=== PATIENT | female | born 1995 | race Caucasian/White ===

== ENCOUNTER 2020-07-25 03:07 | Outpatient (CLI) | payer MEDICAID, SELFPAY ==
[2020-07-25 23:15] LABS: COVID-19 PCR Negative (Negative)
== END 2020-07-25 03:08 | disposition home or self-care (01) ==
PROVIDERS: PCP Internal Medicine; Visit Provider Urology
DX: Z20.822 Contact with and (suspected) exposure to COVID-19 (principal); Z01.818 Encounter for other preprocedural examination
CPT/HCPCS: 87635

== ENCOUNTER 2020-11-12 17:23 | Emergency (ER) | payer MEDICAID, SELFPAY ==
[2020-11-12 17:44] VITALS: BP 128/72; PULSE 84; RESP 17; TEMP 36.7; O2SAT 100
--- NOTE | 2020-11-12 17:59 | ED.GENADUL_ITS ---
Discharge Plan Disposition Patient Disposition: HOME Condition: Stable Discharge Details Clinical Impression: Recurrent urinary tract infection, Right ankle sprain Primary Care Provider: Jose Mckoy ED Provider: Jazzy Kaiser Home Meds and New Rx's Prescriptions: New sulfamethoxazole-trimethoprim [Bactrim DS] 800-160 mg tablet 1 tab PO BID 7 Days Qty: 14 RF: 0 No Action pantoprazole 40 mg tablet,delayed release (DR/EC) 40 mg PO DAILY RF: 0 propranolol 80 mg capsule,extended release 24 hr 80 mg PO DAILY RF: 0 hydroxyzine HCl 25 mg tablet 25 mg PO BID RF: 0 Toviaz 8 mg tablet extended release 24 hr 8 mg PO HS RF: 0 Myrbetriq 50 mg tablet extended release 24 hr 50 mg PO DAILY RF: 0 Discharge Instructions Instructions: Ankle Sprain (ED), Urinary Tract Infection in Women (ED), How to Care for Your Suprapubic Catheter (DC) Additional Instructions: Take antibiotics as directed. I do understand that you just recently finished a course of antibiotics. Please take another 7 days of antibiotics and follow-up with your urologist at [facility]. Use the Jaswant wrap as needed for comfort. Rest, ice, compression, elevation for your ankle. The x-rays show no obvious deformity or abnormality. Follow up with primary care provider in 3-5 days. Return to ED sooner if any worsening or concerns. Increase oral fluids. Please take Tylenol or Ibuprofen with food every 4-6 hours as needed for pain and swelling. Referrals: Jose Mckoy [Primary Care Provider] - Discharge Data Discharge Date/Time-TO BE ENTERED AT DEPARTURE: 11/12/20 19:35 Medical Decision Making 25-year-old female with a past medical history of Li syndrome and a suprapubic catheter presents to the emergency room with chief complaint of suprapubic insertion site pain, pain with emptying her bladder, and increased yellowish drainage since having catheter changed out on . Does endorse some chills, no abdominal pain no vomiting no other associated symptoms. Patient reports that she does clean the insertion site with soap and water every day. She also is complaining of some right ankle pain status post possible injury 2 weeks ago while chasing after her horse. Ankle has no signs of obvious deformity does have some Achilles tenderness, and lateral malleolus tenderness with palpation. Distal CMS intact. Patient sees urologist at [facility]. Urinalysis and right ankle x-ray ordered. Urinalysis shows trace leukocyte, 10-20 WBCs culture is pending at this time. Will place patient on Bactrim DS twice daily for the next 7 days and instructed to follow-up with PCP/[facility] urologist regarding urinary tract infection. Imaging protocol: XR Right ankle. Views: 3 or more views. COMPARISON: No relevant prior studies available. FINDINGS: Bones/joints: There is no evidence of acute fracture. There is no evidence of joint malalignment or dislocation. Soft tissues: There are no soft tissue masses or fluid collections. IMPRESSION: 1. No evidence of acute fracture. 2. No evidence of acute dislocation. Discussed results and imaging with patient and discussed need to follow-up with [facility] urologist she verbalizes understanding. I did recommend to discuss the chronic recurrent UTIs most likely due to the catheter. I did give her written instructions of catheter home care. Discussed return instructions including increased redness, abdominal pain, vomiting, fever or any concerns. HPI General Mode of arrival: ambulatory . Date/Time Provider Initiated Documentation: 11/12/20 17:25 . Limitations to Documentation: no limitations . Information obtained by: patient and RN notes reviewed . HPI Narrative: 25-year-old female with a past medical history of Li syndrome and a suprapubic catheter presents to the emergency room with chief complaint of suprapubic insertion site pain, pain with emptying her bladder, and increased yellowish drainage since having catheter changed out on . Does endorse some chills, no abdominal pain no vomiting no other associated symptoms. Patient reports that she does clean the insertion site with soap and water every day. She also is complaining of some right ankle pain status post possible injury 2 weeks ago while chasing after her horse. Ankle has no signs of obvious deformity does have some Achilles tenderness, and lateral malleolus tenderness with palpation. Distal CMS intact. Patient sees urologist at [facility]. Related Data Home Medications Medication Instructions Recorded Confirmed fesoterodine [Toviaz] 8 mg PO HS 11/12/20 11/12/20 hydroxyzine HCl 25 mg PO BID 11/12/20 11/12/20 mirabegron [Myrbetriq] 50 mg PO DAILY 11/12/20 11/12/20 pantoprazole 40 mg PO DAILY 11/12/20 11/12/20 propranolol 80 mg PO DAILY 11/12/20 11/12/20 sulfamethoxazole-trimethoprim 1 tab PO BID 7 Days #14 tab 11/12/20 [Bactrim DS] Previous Rx's Medication Instructions Recorded sulfamethoxazole-trimethoprim 1 tab PO BID 7 Days #14 tab 11/12/20 [Bactrim DS] Allergies Allergy/AdvReac Type Severity Reaction Status Date / Time cephalexin [From Keflex] AdvReac Intermediate Diarrhea Unverified 11/12/20 17:54 Latex, Natural Rubber AdvReac Intermediate Swelling/Ed Unverified 11/12/20 17:54 [email or web address] General Stated Complaint: Urinary KAYLIN: 4 Review of Systems All systems reviewed & are unremarkable except as noted in HPI and below Genitourinary Genitourinary: Reports as per HPI (Hx Suprapubic Saleem with dysuria, and insertion site pain.), Reports dysuria, Denies pelvic pain, Denies vaginal discharge and Denies vaginal odor [facility] Medical History (Updated 11/12/20 @ 19:23 by Jazzy Kaiser) Li's syndrome Social History Smoking/Tobacco Use Status: Never Smoking risk assessment performed?: Yes Alcohol Intake: never Drug use: Never Substance use type: does not use Do you feel safe at home: Yes Do you feel safe in your relationship?: Yes Exam Narrative Exam Narrative: Constitutional: Alert and oriented x3. Appears stated age. Normal body habitus. Head: Normocephalic, no trauma. Eyes: Pupils PERRLA, Red reflex noted, EOM's intact. Eyelids symmetrical without lesions, discharge, or swelling. ENT: Bilateral TM's WNL, External ear normal to inspection, no mastoid TTP, swe lling, or erythema, Nasal turbinates WNL, no nasal discharge. Normal dentition, Posterior pharynx WNL, no exudate. Chest: RRR, Normal S1, S2, distal pulses intact. Resp: Lungs clear to auscultation bilaterally, no wheezes, rales, or rhonchi. Abdomen: Suprapubic Saleem catheter noted, no significant surrounding erythema or swelling there is small amount of yellow honey colored crusty drainage. Mild CVA tenderness bilaterally with palpation. Abdomen is soft nondistended nontender to palpation all 4 quadrants. Musculoskeletal: Normal gait, 5/5 strength to all four extremities. Right ankle tenderness to the lateral malleolus with palpation no obvious deformity, crepitus or swelling. Distal CMS intact. Skin: No suspicious rashes or lesions. Capillary refill less than 2 sec. Neurologic: Cranial nerves II-XII intact. Alert and oriented x 3. DTR's intact. Hematologic/Lymphatic: No ecchymosis, no lymphadenopathy. Course Vital Signs Vital signs: Vital Signs Temperature 36.7 C 11/12/20 17:44 Pulse 84 11/12/20 17:44 Respiratory Rate 17 11/12/20 17:44 Blood Pressure 128/72 11/12/20 17:44 Pulse Oximetry 100 11/12/20 17:44 Temperature 36.7 C 11/12/20 17:44 Temperature Source Temporal Artery Scan 11/12/20 17:44 Pulse 84 11/12/20 17:44 Respiratory Rate 17 11/12/20 17:44 Respiratory Effort Non-Labored 11/12/20 17:55 Blood Pressure 128/72 11/12/20 17:44 Blood Pressure Position Sitting 11/12/20 17:44 Pulse Oximetry 100 11/12/20 17:44 Oxygen Delivery Method Room Air 11/12/20 17:44 Oxygen Flow Rate 0 11/12/20 17:44 Pain Level 4 11/12/20 17:44 Lab/Test Results Lab/Test Results: POC- Test(urine) Negative
[2020-11-12 18:00] LABS: Bilirubin Negative (Negative); Blood Negative (Negative); Clarity Clear (Clear); Glucose Negative (Negative); Ketones Negative (Negative); Leukocyte Esterase Trace (Negative); Nitrite Negative (Negative); Urobilinogen 0.2 EU/dL (Up TO 0.2)
[2020-11-12 18:16] LABS: Bacteria Negative HPF (Negative); C & S Indicated? Yes; Crystals Negative HPF (Negative); Epithelial Cells Negative HPF (Negative); Mucus Negative (Negative); RBC Negative HPF (0-2)
--- NOTE | 2020-11-12 18:58 | DI.RAD_ITS ---
Exam(s) XR ANKLE RT COMPLETE EXAM: XR ANKLE RT COMPLETE CLINICAL HISTORY: Injury 2 weeks ago, Ankle pain/swelling. TECHNIQUE: 2D digital imaging was performed. COMPARISON: No exams were available for comparison FINDINGS: No evidence of fracture or widening of the mortise. Talar dome appears unremarkable. No degenerativ e changes. No tarsal coalition. IMPRESSION: No significant radiographic findings DATA REPOSITORY: RADIATION DOSE DELIVERED:
[2020-11-12] MEDS: Sulfameth/Trimeth DS TAB 1 TAB PO (19:09)
--- NOTE | 2020-11-12 20:07 | DI.VRAD_ITS ---
PROCEDURE INFORMATION: Exam: XR Right Ankle Exam date and time: 11/12/2020 6:02 PM Age: 25 years old Clinical indication: Ankle; Right; Patient HX: Injured 2 weeks ago, pain medial TECHNIQUE: Imaging protocol: XR Right ankle. Views: 3 or more views. COMPARISON: No relevant prior studies available. FINDINGS: Bones/joints: There is no evidence of acute fracture. There is no evidence of joint malalignment or dislocation. Soft tissues: There are no soft tissue masses or fluid collections. IMPRESSION: 1. No evidence of acute fracture. 2. No evidence of acute dislocation. Dictated and Authenticated by: Raul Garcai MD. Ordering:JAMIE Purcell MD
--- NOTE | 2020-11-13 13:40 | NUR.NOTE ---
Addendum entered by Mirlande Whitman 11/13/20 13:51: Nurse from Urology was Kit Original Note: Nursing Note: [facility] [place] [facility] called requesting the UA and if possible UC to be faxed to them. I faxed the UA and a preliminary to them. They will speak with the lab and have the Urine culture faxed directly to them. Mirlande Whitman P [phone] F [phone]
== END 2020-11-12 19:35 | disposition home or self-care (01) ==
PROVIDERS: Emergency Provider Registered Nurse Emergency; PCP Internal Medicine
DX: N39.0 Urinary tract infection, site not specified (principal); B95.61 Methicillin susceptible Staphylococcus aureus infection as the cause of diseases classified elsewhere; S93.491A Sprain of other ligament of right ankle, initial encounter; X58.XXXA Exposure to other specified factors, initial encounter; Z96.0 Presence of urogenital implants
CPT/HCPCS: 81025; 87077; 99283; 73610; 81003; 81015; 87086; 87186; 99284

== ENCOUNTER 2022-10-25 17:12 | Outpatient (REF) | payer MEDICAID, SELFPAY ==
[2022-10-25 19:36] LABS: Bilirubin Negative (Negative); Blood Trace-intact (Negative); Clarity Clear (Clear); Glucose Negative (Negative); Ketones Negative (Negative); Leukocyte Esterase Negative (Negative); Nitrite Negative (Negative); Urobilinogen 0.2 mg/dL (Up to 0.2); pH 6.5 (5-8)
[2022-10-25 19:45] LABS: Bacteria Rare HPF (Negative); C & S Indicated? C&S Done As Ordered; Casts Negative LPF (Negative); Crystals Negative HPF (Negative); Epithelial Cells Rare HPF (Negative); Mucus Negative (Negative); WBC 0-2 HPF (0-5)
== END 2022-10-25 17:13 | disposition home or self-care (01) ==
LOC: LBN 17:12
PROVIDERS: PCP Internal Medicine; Visit Provider Urology
DX: N32.89 Other specified disorders of bladder (principal); R82.998 Other abnormal findings in urine; N39.0 Urinary tract infection, site not specified
CPT/HCPCS: 87077; 81003; 81015; 87086; 87186

== ENCOUNTER 2022-11-26 17:03 | Outpatient (REF) | payer MEDICAID, SELFPAY ==
[2022-11-26 15:13] LABS: Bacteria Moderate HPF (Negative); C & S Indicated? C&S Done As Ordered; Casts Negative LPF (Negative); Crystals Negative HPF (Negative); Epithelial Cells Rare HPF (Negative); Mucus Negative (Negative); RBC 0-2 HPF (0-2)
== END 2022-11-26 17:04 | disposition home or self-care (01) ==
LOC: LBN 17:03
PROVIDERS: PCP Internal Medicine; Visit Provider Urology
DX: N32.89 Other specified disorders of bladder (principal); R82.998 Other abnormal findings in urine; R82.79 Other abnormal findings on microbiological examination of urine
CPT/HCPCS: 87077; 81015; 87086; 87186

== ENCOUNTER 2022-12-11 12:28 | Outpatient (REF) | payer MEDICAID, SELFPAY | END 2022-12-11 12:29 | disposition home or self-care (01) | LOC: LBN 12:28 | PROVIDERS: PCP Internal Medicine; Visit Provider Urology | DX: N32.89 Other specified disorders of bladder (principal); R82.79 Other abnormal findings on microbiological examination of urine | CPT/HCPCS: 87077; 87086; 87186 ==

== ENCOUNTER 2023-03-25 10:43 | Outpatient (REF) | payer MEDICAID, SELFPAY ==
[2023-03-25 15:35] LABS: Bilirubin Negative (Negative); Blood Trace-intact (Negative); Clarity Cloudy (Clear); Glucose Negative (Negative); Ketones Negative (Negative); Leukocyte Esterase Trace (Negative); Nitrite Positive (Negative); Urobilinogen 0.2 mg/dL (Up to 0.2); pH 7.5 (5-8)
[2023-03-25 15:52] LABS: Epithelial Cells Moderate HPF (Negative); RBC 0-2 HPF (0-2); WBC >50 HPF (0-5)
[2023-03-25 15:53] LABS: Bacteria Moderate HPF (Negative); C & S Indicated? C&S Done As Ordered; Casts Negative LPF (Negative); Crystals Few Amorphous HPF (Negative); Mucus Heavy (Negative)
--- NOTE | 2023-03-29 01:22 | NUR.NOTE ---
Scanned lab results to Charlie Bedoya at [facility]
== END 2023-03-25 10:44 | disposition home or self-care (01) ==
LOC: LBN 10:43
PROVIDERS: PCP Internal Medicine; Visit Provider Urology
DX: R82.998 Other abnormal findings in urine (principal); R39.89 Other symptoms and signs involving the genitourinary system
CPT/HCPCS: 87077; 81003; 81015; 87086; 87186

== ENCOUNTER 2023-04-09 15:13 | Outpatient (REF) | payer MEDICAID, SELFPAY ==
[2023-04-09 13:22] LABS: Bilirubin Negative (Negative); Blood Trace-intact (Negative); Clarity Clear (Clear); Glucose Negative (Negative); Ketones Negative (Negative); Leukocyte Esterase Negative (Negative); Nitrite Negative (Negative); Urobilinogen 0.2 mg/dL (Up to 0.2)
[2023-04-09 13:30] LABS: Bacteria Negative HPF (Negative); Casts Negative LPF (Negative); Crystals Rare Calcium Oxalate HPF (Negative); Epithelial Cells Moderate HPF (Negative); Mucus Trace (Negative); Other Cells Rare Renal (Negative); RBC 0-2 HPF (0-2); WBC Negative HPF (0-5)
[2023-04-09 13:31] LABS: C & S Indicated? No
== END 2023-04-09 15:14 | disposition home or self-care (01) ==
LOC: LBN 15:13
PROVIDERS: PCP Internal Medicine; Visit Provider Urology
DX: R33.8 Other retention of urine (principal)
CPT/HCPCS: 81003; 81015

== ENCOUNTER 2023-06-06 19:22 | Outpatient (REF) | payer MEDICAID, SELFPAY ==
[2023-06-06 16:23] LABS: Bilirubin Negative (Negative); Blood Moderate (Negative); Clarity Clear (Clear); Glucose Negative (Negative); Ketones Negative (Negative); Leukocyte Esterase Moderate (Negative); Nitrite Negative (Negative); Urobilinogen 0.2 mg/dL (Up to 0.2); pH 6.5 (5-8)
[2023-06-06 16:32] LABS: Epithelial Cells Rare HPF (Negative); WBC 20-50 HPF (0-5)
[2023-06-06 16:33] LABS: Bacteria Rare HPF (Negative); C & S Indicated? C&S Done As Ordered; Crystals Negative HPF (Negative); Mucus Trace (Negative)
== END 2023-06-06 19:23 | disposition home or self-care (01) ==
LOC: LBN 19:22
PROVIDERS: PCP Internal Medicine; Visit Provider Urology
DX: N23 Unspecified renal colic (principal); R82.998 Other abnormal findings in urine
CPT/HCPCS: 87077; 81003; 81015; 87086; 87186

== ENCOUNTER 2023-07-09 17:15 | Outpatient (CLI) | payer MEDICAID, SELFPAY | END 2023-07-09 17:16 | disposition home or self-care (01) | LOC: LBO 17:16 | PROVIDERS: PCP Internal Medicine; Visit Provider Urology | DX: R31.0 Gross hematuria (principal); B96.29 Other Escherichia coli [E. coli] as the cause of diseases classified elsewhere | CPT/HCPCS: 36415; 87077; 87086; 87186 ==

== ENCOUNTER 2023-08-25 18:11 | Outpatient (REF) | payer MEDICAID, SELFPAY | END 2023-08-25 18:12 | disposition home or self-care (01) | LOC: LBN 18:11 | PROVIDERS: PCP Internal Medicine; Visit Provider Urology | DX: R31.0 Gross hematuria (principal) | CPT/HCPCS: 87077; 87086; 87186 ==

== ENCOUNTER 2023-09-15 22:02 | Outpatient (REF) | payer MEDICAID, SELFPAY | END 2023-09-15 22:03 | disposition home or self-care (01) | LOC: LBN 22:02 | PROVIDERS: PCP Internal Medicine; Visit Provider Urology | DX: N32.89 Other specified disorders of bladder (principal) | CPT/HCPCS: 87077; 87086; 87186 ==

== ENCOUNTER 2023-09-30 18:01 | Outpatient (REF) | payer MEDICAID, SELFPAY | END 2023-09-30 18:02 | disposition home or self-care (01) | LOC: LBN 18:01 | PROVIDERS: PCP Internal Medicine; Visit Provider Urology | DX: N39.0 Urinary tract infection, site not specified (principal); N32.89 Other specified disorders of bladder | CPT/HCPCS: 87077; 87086; 87186 ==

== ENCOUNTER 2024-03-01 18:22 | Emergency (ER) | payer MEDICAID, SELFPAY ==
[2024-03-01 18:33] VITALS: BP 108/67; PULSE 101; RESP 20; TEMP 36.7; O2SAT 99
--- NOTE | 2024-03-01 19:50 | W.ED.GENAD ---
Discharge Plan Disposition Patient Disposition: Against Medical Advice Condition: Stable Discharge Details Clinical Impression: Small bowel obstruction Primary Care Provider: Chiquis Adams ED Provider: Zheng Guerrero Home Meds and New Rx's Prescriptions: Continued pantoprazole 40 mg tablet,delayed release (DR/EC) 40 mg PO DAILY Patient Comments: TAKE 1 TABLET BY MOUTH ONCE DAILY propranolol 80 mg capsule,extended release 24 hr 80 mg PO DAILY Patient Comments: TAKE 1 CAPSULE BY MOUTH ONCE DAILY hydroxyzine HCl 25 mg tablet 25 mg PO BID Patient Comments: TAKE 1 TABLET BY MOUTH EVERY 8 HOURS NEEDED fesoterodine [Toviaz] 8 mg tablet extended release 24 hr 8 mg PO HS Patient Comments: TAKE 1 TABLET BY MOUTH ONCE DAILY IN THE EVENING mirabegron [Myrbetriq] 50 mg tablet extended release 24 hr 50 mg PO DAILY Patient Comments: TAKE 1 TABLET BY MOUTH ONCE DAILY diazepam 2 mg tablet 2 mg PO BID PRN Patient Comments: TAKE 1 TABLET BY MOUTH EVERY 12 HOURS NEEDED FOR ANXIETY FOR 28 DAYS. MAX DAILY DOSE = 4 MG Discharge Instructions Instructions: Small bowel obstruction Additional Instructions: You were seen here in the emergency department for your abdominal pain and constipation since yesterday without passage of gas. Your CT scan shows a small bowel obstruction and I think you should be admitted to the hospital, that sometimes these cases merely need nasogastric tube and time to self resolve but sometimes they can be surgical, you chose to leave AGAINST MEDICAL ADVICE and presented to another facility where you would prefer to remain in case of any surgical complications due to your extensive surgical history. He may suffer injury or even leaving AGAINST MEDICAL ADVICE but I do recommend that he present to facility of your choosing. Referrals: Chiquis Adams [Primary Care Provider] - Discharge Data Discharge Date/Time-TO BE ENTERED AT DEPARTURE: 03/01/24 22:20 Discharge Comment: Pt left AMA HPI General Date/Time Provider Initiated Documentation: 03/01/24 18:58. HPI Narrative: 28 year-old female presents to ED today by POV/ambulating with her boyfriend with a chief complaint of abdominal pain, nausea, near syncope, chills with onset noted mostly today. Quality described as severe lower abdominal pain, no radiation to chest pain, cough, shortness of breath, endorsese constipation since yesterday and not passing flatus, denies overt fever. Severity is described as severe. Palliating factors include nothing specific attempted. Provoking factors include nothing specific. 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 Patient not anticoagulated. Related Data Home Medications ?Medication ?Instructions ?Recorded ?Confirmed fesoterodine 8 mg tablet,extended 8 mg PO HS 11/12/20 03/01/24 release 24 hr (Toviaz) hydroxyzine HCl 25 mg tablet 25 mg PO BID 11/12/20 03/01/24 mirabegron 50 mg tablet,extended 50 mg PO DAILY 11/12/20 03/01/24 release 24 hr (Myrbetriq) pantoprazole 40 mg tablet,delayed 40 mg PO DAILY 11/12/20 03/01/24 release propranolol 80 mg capsule,24 80 mg PO DAILY 11/12/20 03/01/24 hr,extended release diazepam 2 mg tablet 2 mg PO BID PRN 03/01/24 03/01/24 Allergies Allergy/AdvReac Type Severity Reaction Status Date / Time cephalexin (From Keflex) AdvReac Intermediate Diarrhea Unverified 03/01/24 18:36 Latex, Natural Rubber AdvReac Intermediate Swelling/Ed Unverified 03/01/24 18:36 [email or web address] General Stated Complaint: Abd Prob KAYLIN: 3 Review of Systems All systems reviewed & are unremarkable except as noted in HPI and below Exam Narrative Exam Narrative: GENERAL APPEARANCE: Well-nourished, non-toxic, awake and alert, atraumatic, no acute distress. SKIN: Warm, pink, dry, intact, without rashes/lesions/ulcerations. HEAD: Normocephalic, atraumatic, normal hair distribution for gender/age. EYES: Normal conjunctiva, no exudates on lids/lashes. ENT: Nares patent, no circumoral cyanosis, no facial swelling NECK: Supple, trachea midline, painless cervical ROM. LUNGS/CHEST: Lungs CTA bilaterally, non-labored respirations, normal A/P diameter, symmetrical expansion, no chest wall deformity HEART (CV/PV): Regular rate and rhythm without murmur, no peripheral edema, no JVD. ABDOMEN: Soft, non-distended, no guarding, lower abdominal tenderness, no Corcoran sign, normoactive bowel sounds in the right abdomen, question hypoactive in the left, no CVA tenderness to percussion bilaterally. MSK: Normal ROM, no swelling/deformity to bilateral UEs or LEs, moving all extremities without weakness, no cyanosis, spine midline without tenderness, normal curvature. NEURO: Mental Status AAOx4 - alert to person, place, time, events No facial droop, no forehead involvement. Motor: No focal weakness - strength 5/5 in bilateral UEs and LEs, proximal and distal, symmetric. Sensory: sensation intact to light touch globally. Gait normal: patient ambulated without ataxia into ED room. PSYCH: euthymic, cooperative, pleasant, appropriate speech Course Vital Signs Vital signs: Vital Signs Temperature 36.7 C 03/01/24 18:33 Pulse 101 H 03/01/24 18:33 Respiratory Rate 20 03/01/24 18:33 Blood Pressure 108/67 03/01/24 18:33 Pulse Oximetry 99 03/01/24 18:33 Temperature 36.7 C 03/01/24 18:33 Temperature Source Oral 03/01/24 18:33 Pulse 101 H 03/01/24 18:33 Respiratory Rate 20 03/01/24 18:33 Blood Pressure 108/67 03/01/24 18:33 Blood Pressure Position Sitting 03/01/24 18:33 Pulse Oximetry 99 03/01/24 18:33 Oxygen Delivery Method Room Air 03/01/24 18:33 Oxygen Flow Rate 0 03/01/24 18:33 Pain Level 7 03/01/24 18:33 Medical Decision Making This dictation utilizes [id number] dictation software and may contain unedited grammatical errors. 28 year-old female presents to ED today by POV/ambulating with her boyfriend with a chief complaint of abdominal pain, nausea, near syncope, chills with onset noted mostly today. Quality described as severe lower abdominal pain, no radiation to chest pain, cough, shortness of breath, endorsese constipation since yesterday and not passing flatus, denies overt fever. Severity is described as severe. Palliating factors include nothing specific attempted. Provoking factors include nothing specific. 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 Family and social history: Noncontributory. Pertinent exam findings / vital signs include lower abdominal tenderness, no Corcoran sign, normoactive bowel sounds in the right abdomen, question hypoactive in the left, no CVA tenderness to percussion bilaterally, benign cardiopulmonary exam. Differential / pathologies of concern include [ ]. Diagnostic studies of: -CBC, CMP, lactate, lipase, CT ABD/pelvis with contrast. -Labs show mild leukocytosis, no actionable abnormality on CMP, negative lipase, negative lactate -CT ABD/pelvis shows a distal small bowel obstruction with transition point and wall thickening Interventions of: -Counseled the patient on small bowel obstruction and likely need for admission to the hospital, discussed NG tube and observation versus possible surgical need, the patient wished to leave AMA at this point on even the possibility of surgery and present to facility where she has complex urologic surgical history. ED Course/Assessment/Plan: 28-year-old female is having lower abdominal pain feeling like she is going to pass out, states her heart rate is fluttering, she has tried ondansetron without relief, she has been having some episodes of vomiting, reports 1 bowel movement yesterday morning but no passage of flatus or further bowel movement since. Her CT does show a distal small bowel obstruction at the site of a prior anastomosis. She has elevated white blood cells to 15.47, no actionable abnormality on CMP, lipase and LFTs negative. I counseled her that she likely needed admission to the hospital with a placement of NG tube and possible small bowel follow-through series but this sometimes these cases can be surgical. She has had extensive prior urologic surgery at [facility] and states that she would like to be transferred there is stated that they were unlikely to accept the transfer but I would be happy to call for them. She stated she would like to sign out AGAINST MEDICAL ADVICE and presented to [facility] herself after calling her mother on the phone. I counseled her that she is leaving with a significant pathology of small bowel obstruction and that she needs to be careful and should present to any facility she prefers for definitive care, counseled that she could have injury, coma, possibly after leaving the hospital. Findings not consistent with perforated viscous. Disposition of Small Bowel Obstruction. Patient verbalized understanding of the plan and return to ED criteria and engaged in shared decision making. Medical Records Medical records reviewed: Yes I reviewed the patient's medical records. Imaging Data Radiologic Study: Attestation: I personally reviewed and interpreted this imaging study as follows: Imaging: CT Scan Radiologist's impression: Addendum created by Andrea Rush MD on 03/01/2024 10:07:38 PM EST: THIS REPORT CONTAINS FINDINGS THAT MAY BE CRITICAL TO PATIENT CARE. The findings were verbally communicated via telephone conference with ZHENG GUERRERO at 10:07 PM EST on 03/01/2024. The findings were acknowledged and understood. Initial report created on 03/01/2024 10:04:24 PM EST: PROCEDURE INFORMATION: Exam: CT Abdomen And Pelvis With Contrast Exam date and time: 03/01/2024 8:48 PM Age: 28 years old Clinical indication: Other: R sided abd pain; Prior surgery; Surgery date: 6+ months; Surgery type: Bladder, appendix TECHNIQUE: Imaging protocol: Computed tomography of the abdomen and pelvis with contrast. Contrast material: OMNIPAQUE 350; Contrast volume: 75 ml; Contrast route: INTRAVENOUS (IV); COMPARISON: No relevant prior studies available. FINDINGS: Liver: Normal. No mass. Gallbladder and biliary ducts: Normal. No calcified stones. No ductal dilation. Pancreas: Normal. No ductal dilation. Spleen: Normal. No splenomegaly. Adrenal glands: Normal. No mass. Kidneys and ureters: Normal. No hydronephrosis. Stomach and bowel: Distended small bowel loops containing fecal matter in the pelvis exhibit abrupt transition to nondilated small bowel in the area of prior small bowel anastomosis. There is moderate adjacent small bowel wall thickening and surrounding fatty stranding. Normal amount of gas and stool throughout the colon. Bowel loops are otherwise normal in caliber. Appendix: No evidence of appendicitis. Intraperitoneal space: Minimal free fluid in the pelvis. No free air. Vasculature: Unremarkable. No abdominal aortic aneurysm. Lymph nodes: Unremarkable. No enlarged lymph nodes. Urinary bladder: Unremarkable as visualized. Reproductive: Uterus appears to be surgically absent. No adnexal abnormality. Bones/joints: Unremarkable. No acute fracture. Soft tissues: Unremarkable. IMPRESSION: Findings suggesting distal small bowel obstruction with transition point in the pelvis in the area of prior small bowel anastomosis. Adjacent wall thickening and inflammatory change may be secondary to obstruction or indicate focal enteritis Dictated and Authenticated by: Andrea Rush MD. Lab Data Lab results reviewed: Yes I reviewed the patient's lab results. Labs: Laboratory Tests Range/Units 03/01/ 20:18 WBC (4.4-10.8) 10^3/uL 15.47 H RBC (3.93-5.22) 10^6/uL 4.70 Hgb (11.2-15.7) g/dL 14.5 Hct (36.0-46.0) % 41.5 MCV (80-95) fL 88 MCH (27.0-33.0) pg 30.9 MCHC (32.0-36.0) % 34.9 RDW (11.7-14.6) % 10.9 L Plt Count (130-400) 10^3/uL 300 MPV (8.0-11.0) fL 9.2 Immature Gran % % 0.4 Neutrophils % % 90.1 Lymphocytes % % 6.2 Monocytes % % 2.9 Eosinophils % % 0.1 Basophils % % 0.3 Nucleated RBC % (0.0-0.3) % 0.0 Absolute Neutrophils (1.2-6.7) 10^3/uL 13.94 H Absolute Lymphocytes (1.2-3.4) 10^3/uL 0.96 L Absolute Monocytes (0.1-0.8) 10^3/uL 0.45 Absolute Eosinophils (0.0-0.7) 10^3/uL 0.02 Absolute Basophils (0.0-0.2) 10^3/uL 0.05 VBG Lactate (0.6-1.4) mmol/L 0.9 Sodium (136-145) mmol/L 139 Potassium (3.5-5.1) mmol/L 4.1 Chloride (98-107) mmol/L 102 Carbon Dioxide (21.0-32.0) mmol/L 27.3 Anion Gap (3-11) mmol/L 9.7 BUN (7-18) mg/dL 10 Creatinine (0.55-1.02) mg/dL 0.9 Est GFR (CKD-EPI 2020) (mL/min/1.73m2) 89.30 Glucose (74-106) mg/dL 118 H Calcium (8.5-10.1) mg/dL 9.6 Magnesium (1.8-2.4) mg/dL 1.9 Total Bilirubin (0.2-1.0) mg/dL 0.95 AST (15-37) U/L 13 L ALT (14-59) U/L 18 Alkaline Phosphatase (46-116) U/L 31 L Total Protein (6.4-8.2) g/dL 8.0 Albumin (3.4-5.0) g/dL 4.4 Lipase (16-77) U/L 44 Quality:SDOH Health Related Social Needs: No Data to Display PFSH All Active Problems (Updated 03/01/24 @ 22:20 by JAMAR Mena) Small bowel obstruction (Acute) Right ankle sprain (Acute) Recurrent urinary tract infection (Acute) Li's syndrome (Acute) Social History Smoking/Tobacco Use Status: Never Smoking risk assessment performed?: Yes Alcohol Intake: never Drug use: Never Substance use type: does not use Do you feel safe at home: Yes Do you feel safe in your relationship?: Yes
[2024-03-01 20:03] VITALS: PULSE 92; RESP 23; TEMP 36.5; O2SAT 100
[2024-03-01 20:22] LABS: Lactate 0.9 mmol/L (0.6-1.4)
[2024-03-01 20:26] LABS: Abs Immature Grans 0.06 10^3/uL (0.0-0.06); Absolute Basophil Count 0.05 10^3/uL (0.0-0.2); Absolute Eosinophil Count 0.02 10^3/uL (0.0-0.7); Absolute Lymphocyte Count 0.96 10^3/uL (1.2-3.4); Absolute Monocyte Count 0.45 10^3/uL (0.1-0.8); Absolute Neutrophil Count 13.94 10^3/uL (1.2-6.7); Basophils % 0.3 %; Eosinophils % 0.1 %; HCT 41.5 % (36.0-46.0); HGB 14.5 g/dL (11.2-15.7); Immature Grans % 0.4 %; Lymphocytes % 6.2 %; MCH 30.9 pg (27.0-33.0); MCHC 34.9 % (32.0-36.0); MCV 88 fL (80-95); MPV 9.2 fL (8.0-11.0); Monocytes % 2.9 %; Neutrophils % 90.1 %; Platelet Count 300 10^3/uL (130-400); RDW 10.9 % (11.7-14.6); RDW-SD 35.4 fL; WBC 15.47 10^3/uL (4.4-10.8)
[2024-03-01 20:40] LABS: ALT 18 U/L (14-59); AST 13 U/L (15-37); Albumin 4.4 g/dL (3.4-5.0); Alkaline Phosphatase 31 U/L (46-116); Anion Gap 9.7 mmol/L (3-11); BUN 10 mg/dL (7-18); Bilirubin, Total 0.95 mg/dL (0.2-1.0); CO2 27.3 mmol/L (21.0-32.0); CREATININE 0.9 mg/dL (0.55-1.02); Calcium 9.6 mg/dL (8.5-10.1); Chloride 102 mmol/L (98-107); Glucose 118 mg/dL (74-106); Lipase 44 U/L (16-77); Magnesium 1.9 mg/dL (1.8-2.4); Potassium 4.1 mmol/L (3.5-5.1); Sodium 139 mmol/L (136-145)
[2024-03-01] MEDS: Normal Saline - Diluent 50 ML VIAL IJ (20:45)
--- NOTE | 2024-03-01 21:04 | DI.CT_ITS ---
Exam(s) CT ABDOMEN PELVIS W EXAM: CT ABDOMEN PELVIS W CLINICAL HISTORY: R sided ABD pain. TECHNIQUE: Imaging Protocol: Axial computed tomography images with coronal and sagittal reformatted images were created and reviewed CONTRAST MATERIAL: Intravenous: Omnipaque-350 75cc Oral: None COMPARISON: No exams were available for comparisonz FINDINGS: VISUALIZED LUNG BASES: No nodules nor pleural effusions evident. ABDOMEN: There is no ascites. LIVER: There are no focal hepatic lesions evident. No dilated intrahepatic ducts. GALLBLADDER/BILIARY: No obvious gallbladder pathology. CBD is not dilated. PANCREAS: No evidence of pancreatic mass nor dilatation of the pancreatic duct. SPLEEN: Spleen is not enlarged. No obvious intrasplenic lesions. Splenic and portal veins are paten t. ADRENALS: There are no significant adrenal masses. KIDNEYS:No cysts evident. No solid renal masses. No calculi nor hydronephrosis.. ABDOMINAL AORTA: Abdominal aorta is not enlarged. LYMPH NODES:There is no retroperitoneal nor paraaortic adenopathy. ABDOMINAL WALL: No evidence of significant anterior abdominal wall nor inguinal hernia. GI: There is a small bowel anastomosis in lower right pelvis just above the urinary bladder and the s mall bowel loop at this level is distended to 3.3 cm and fecal filled consistent with element of obst ruction and there is also some surrounding fluid in this region. No free air evident. The colon is not collapsed at this time.. PELVIS: GI: No evidence of appendicitis.No evidence of sigmoid diverticulitis. LYMPH NODES: There is no intrapelvic nor inguinal adenopathy. REPRODUCTIVE: Uterus appears to be surgically absent. There are no abnormal adnexal masses. URINARY BLADDER: Collapsed. OSSEOUS: No fractures and no significant osseous lesions. IMPRESSION: 1. Findings are consistent with a mid-distal small bowel obstruction with the transition point being at the level of a prior small bowel anastomosis. There is fecalization of the dilated bowel loops at this level and there is some free fluid in the pelvis evident. 2. Surgical consultation recommended. RADIATION DOSE DELIVERED: 355.5mGy.cm Total DLP DATA REPOSITORY: All CT scans at this facility are submitted to the National Radiology Data Registry (NRDR) Dose Index Registry (DIR) with the [employer] (ACR). RADIATION OPTIMIZATION: All CT scans at this facility use at least one of these dose optimization te chniques: automated exposure control; mA and/or kV adjustment per patient size (includes targeted exa ms where dose is matched to clinical indication); or iterative reconstruction.
--- NOTE | 2024-03-01 22:04 | DI.VRAD_ITS ---
Addendum created by Andrea Rush MD on 03/01/2024 10:07:38 PM EST: THIS REPORT CONTAINS FINDINGS THAT MAY BE CRITICAL TO PATIENT CARE. The findings were verbally communicated via telephone conference with DAKOTA GUERRERO at 10:07 PM EST on 03/01/2024. The findings were acknowledged and understood. Initial report created on 03/01/2024 10:04:24 PM EST: PROCEDURE INFORMATION: Exam: CT Abdomen And Pelvis With Contrast Exam date and time: 03/01/2024 8:48 PM Age: 28 years old Clinical indication: Other: R sided abd pain; Prior surgery; Surgery date: 6+ months; Surgery type: Bladder, appendix TECHNIQUE: Imaging protocol: Computed tomography of the abdomen and pelvis with contrast. Contrast material: OMNIPAQUE 350; Contrast volume: 75 ml; Contrast route: INTRAVENOUS (IV); COMPARISON: No relevant prior studies available. FINDINGS: Liver: Normal. No mass. Gallbladder and biliary ducts: Normal. No calcified stones. No ductal dilation. Pancreas: Normal. No ductal dilation. Spleen: Normal. No splenomegaly. Adrenal glands: Normal. No mass. Kidneys and ureters: Normal. No hydronephrosis. Stomach and bowel: Distended small bowel loops containing fecal matter in the pelvis exhibit abrupt transition to nondilated small bowel in the area of prior small bowel anastomosis. There is moderate adjacent small bowel wall thickening and surrounding fatty stranding. Normal amount of gas and stool throughout the colon. Bowel loops are otherwise normal in caliber. Appendix: No evidence of appendicitis. Intraperitoneal space: Minimal free fluid in the pelvis. No free air. Vasculature: Unremarkable. No abdominal aortic aneurysm. Lymph nodes: Unremarkable. No enlarged lymph nodes. Urinary bladder: Unremarkable as visualized. Reproductive: Uterus appears to be surgically absent. No adnexal abnormality. Bones/joints: Unremarkable. No acute fracture. Soft tissues: Unremarkable. IMPRESSION: Findings suggesting distal small bowel obstruction with transition point in the pelvis in the area of prior small bowel anastomosis. Adjacent wall thickening and inflammatory change may be secondary to obstruction or indicate focal enteritis Dictated and Authenticated by: Andrea Rush MD. Ordering:THALIA Calzada MD
[2024-03-01 22:34] LABS: Bilirubin Negative (Negative); Blood Trace-intact (Negative); Clarity Clear (Clear); Glucose Negative (Negative); Ketones >=160 mg/dL (Negative); Leukocyte Esterase Negative (Negative); Nitrite Negative (Negative); Urobilinogen 0.2 mg/dL (Up to 0.2); pH 6.5 (5-8)
[2024-03-01 22:44] LABS: Bacteria Rare HPF (Negative); C & S Indicated? No; Casts Negative LPF (Negative); Crystals Negative HPF (Negative); Epithelial Cells Rare HPF (Negative); Mucus Negative (Negative); RBC 0-2 HPF (0-2)
== END 2024-03-01 22:20 | disposition left against medical advice (07) ==
PROVIDERS: Emergency Provider Physician Assistant; PCP Family Medicine
DX: R10.30 Lower abdominal pain, unspecified (principal); K56.609 Unspecified intestinal obstruction, unspecified as to partial versus complete obstruction; Z53.29 Procedure and treatment not carried out because of patient's decision for other reasons; R11.0 Nausea; K59.00 Constipation, unspecified
CPT/HCPCS: 80053; 81025; 83690; 99285; 74177; 81003; 81015; 83605; 83735; 85025

== ENCOUNTER 2024-10-19 01:49 | Outpatient (CLI) | payer OTHER, SELFPAY ==
--- NOTE | 2024-10-19 10:41 | DI.RAD_ITS ---
Exam(s) XR KNEE LT 3V AP,LAT,SUSU EXAM: XR KNEE LT 3V AP,LAT,SUSU CLINICAL HISTORY: Disability determination Z02.71 Left knee Pain. TECHNIQUE: 2D digital imaging was performed. COMPARISON: No exams were available for comparison FINDINGS: 3 views There is evidence of previous surgery. There is an almost horizontal channel seen in the metaphysis of the femur and a small metallic plate at the level the lateral cortex of the metaphysis. There are no fractures nor obvious joint effusion. However, there are advanced degenerative changes with what appears to be complete elimination of the joint space in the patellofemoral compartment (realizing that there is no merchant's- sunrise view) on this study. There are moderate degenerative changes in the medial lateral compartments. There is a degenerative subarticular cyst in the sub spinous anterior tibial plateau region. There is a benign bone island in the proximal tibial diaphysis. No concerning bone lesions evident. IMPRESSION: Previous surgery. Significant degenerative changes as described above. There is no obvious joint effusion. DATA REPOSITORY: RADIATION DOSE DELIVERED:
== END 2024-10-19 02:09 ==
LOC: DI 01:49
PROVIDERS: PCP Family Medicine; Visit Provider Pediatrics Pediatric Rheumatology
DX: Z02.71 Encounter for disability determination (principal); M25.562 Pain in left knee; Z98.890 Other specified postprocedural states
CPT/HCPCS: 73562

== ENCOUNTER 2024-12-23 13:20 | Emergency (ER) | payer MEDICAID, SELFPAY ==
[2024-12-23 13:27] VITALS: BP 124/82; PULSE 89; RESP 14; TEMP 36.9; O2SAT 100
--- NOTE | 2024-12-23 13:39 | ED.GENADUL_ITS ---
Discharge Plan Disposition Patient Disposition: Home Discharge Details Clinical Impression: Injury of knee, left Primary Care Provider: Chiquis Adams ED Provider: Graham Hernandez Home Meds and New Rx's Prescriptions: New acetaminophen [Tylenol] 325 mg tablet 975 mg PO ONCE PRNQty: 60 0RF ibuprofen 600 mg tablet 600 mg PO Q6H PRNQty: 30 0RF No Action pantoprazole 40 mg tablet,delayed release (DR/EC) 40 mg PO DAILY Patient Comments: TAKE 1 TABLET BY MOUTH ONCE DAILY propranolol 80 mg capsule,extended release 24 hr 80 mg PO DAILY Patient Comments: TAKE 1 CAPSULE BY MOUTH ONCE DAILY hydroxyzine HCl 25 mg tablet 25 mg PO BID Patient Comments: TAKE 1 TABLET BY MOUTH EVERY 8 HOURS NEEDED mirabegron [Myrbetriq] 50 mg tablet extended release 24 hr 50 mg PO DAILY Patient Comments: TAKE 1 TABLET BY MOUTH ONCE DAILY diazepam 2 mg tablet 2 mg PO BID PRN Patient Comments: TAKE 1 TABLET BY MOUTH EVERY 12 HOURS NEEDED FOR ANXIETY FOR 28 DAYS. MAX DAILY DOSE = 4 MG Discharge Instructions Instructions: Knee Brace ED Additional Instructions: Please follow-up with your primary care provider regarding your visit to the emergency department today. Be sure to discuss results of all test performed here today to include radiology, and laboratory testing as well as results for any pending cultures. Should your symptoms worsen, or if you develop new concerning symptoms, please return immediately emergency department for further evaluation. Discharge Data Discharge Date/Time-TO BE ENTERED AT DEPARTURE: 12/23/24 18:40 HPI General Date/Time Provider Initiated Documentation: 12/23/24 13:20 . HPI Narrative: MDM/Narrative: Initial Assessment: Knee pain and inability to fully extend or lift leg after dog collision. Bruising and tenderness noted. Differential Diagnosis: - Knee fracture: Suspected due to trauma. X-ray ordered. - Ligament sprain/tear: Suspected due to bruising and inability to extend leg. Knee immobilizer or hinged brace. Follow up with orthopedics if no improvement in a couple of weeks. ED Course: - X-ray ordered. X-ray negative for fracture, however patient is unable to ambulate or bear weight. As such we will obtain CT imaging to rule out tibial plateau fracture CT imaging negative for acute bony injury. Will place patient in a hinged knee brace, with crutches to follow-up with orthopedics. Clinical Impression: - Knee injury Disposition: - Discharge: Home. Follow up with orthopedics if no improvement in a couple of weeks. Follow-Up: Orthopedics if no improvement in a couple of weeks. This document was created with assistance from [employer]. The patient consen durga to its use. HPI: The patient, with a history of post-traumatic stress disorder (PTSD), anxiety, and Li's syndrome, presents with a knee injury. The injury occurred when the patient's dogs collided with her knee while she was in her backyard, resulting in the knee buckling and causing her to fall. She reports experiencing a headache, decreased appetite, and reduced fluid intake today. The patient is unable to fully extend her leg or lift her heel off the bed due to pain. She has a history of knee instability, potentially related to a previous fall from a chair. Additionally, the right knee exhibits signs of instability. ROS: Negative besides as mentioned above Exam: Vital signs: Reviewed. General Appearance: Alert and oriented. No acute distress. HEENT: EOMI. Neck: Supple, full range of motion, no observable masses, No meningeal sign. Respiratory: No Respiratory distress. No tachypnea. Cardiovascular: RRR, no edema. Gastrointestinal: Soft, nondistended, No rebound tenderness. Back: No midline tenderness to palpation or palpable step-offs of the C/T/L spine. Musculoskeletal: Limited left knee ROM; unable to fully extend leg; there is swelling and ecchymosis and febrile medially to the knee joint. Unable to lift lower extremity off the bed due to pain. DP pulses are 2+ bilaterally Neurological: Normal Gait, Grossly intact. Psychiatric: Appropriate for situation. Radiology: Exam(s) CT LOWER EXTREMITY LT WO EXAM: CT LOWER EXTREMITY LT WO CLINICAL HISTORY: unable to bear weight concern for tib plateau fx. TECHNIQUE: Imaging Protocol: Axial computed tomography images with coronal and sagittal reformatted images were created and reviewed. CONTRAST MATERIAL: Noncontrast COMPARISON: CR XR KNEE LT 3V AP,LAT,SUSU from 10/19/2024 CR XR KNEE LT 3V AP,LAT,SUSU from 12/23/2024 FINDINGS: Bones: There is no evidence of fracture or dislocation. No osteomyelitic changes are identified. No lytic or sclerotic lesions are identified. There are horizontally oriented lucencies in the patella related to previous surgery. There is a suture anchor along the lateral aspect distal femoral metaphysis with adjacent bony lucency related to previous surgery. There is spurring from the femoral condyles and tibial plateaus. The femoral tibial joint spaces are maintained. Joints: There is severe narrowing of the patellofemoral joint space. There is lateral patellar tilt and lateral patellar subluxation. There is a small to moderate-sized knee joint effusion. Soft Tissues: Normal. IMPRESSION: No evidence of acute fracture. Small to moderate-sized joint effusion. There are postsurgical and degenerative changes in greater of the patellofemoral joint. There is lateral patellar subluxation lateral patellar tilt which appears stable based on plain films from October 2024. RADIATION DOSE DELIVERED: Total DLP DATA REPOSITORY: All CT scans at this facility are submitted to the National Radiology Data Registry (NRDR) Dose Index Registry (DIR) with the [employer] (ACR). RADIATION OPTIMIZATION: All CT scans at this facility use at least one of these dose optimization techniques: automated exposure control; mA and/or kV adjustment per patient size (includes targeted exams where dose is matched to clinical indication); or iterative reconstruction. Exam(s) XR KNEE LT 3V AP,LAT,SUSU EXAM: XR KNEE LT 3V AP,LAT,SUSU CLINICAL HISTORY: left knee pain/swelling after fall. TECHNIQUE: 2D digital imaging was performed. Three views. COMPARISON: CR XR KNEE LT 3V AP,LAT,SUSU from 10/19/2024 FINDINGS: BONES: No acute fracture is present. No bony destructive lesion is seen. There is a suture anchor at the lateral lateral femoral condyle. JOINTS: There is severe narrowing of the patellofemoral joint with periarticular spurring. The femoral tibial joint spaces are maintained which show mild periarticular spurring. No joint effusion is seen. SOFT TISSUE: Normal. IMPRESSION: Postsurgical and degenerative changes, advanced for the patient's age. No acute abnormality. DATA REPOSITORY: RADIATION DOSE DELIVERED: Related Data Home Medications ?Medication ?Instructions ?Recorded ?Confirmed hydroxyzine HCl 25 mg tablet 25 mg PO BID 11/12/2003/08 mirabegron 50 mg tablet,extended 50 mg PO DAILY 12/23/24 release 24 hr (Myrbetriq) pantoprazole 40 mg tablet,delayed 40 mg PO DAILY 11/1212/23/24 release propranolol 80 mg capsule,24 80 mg PO DAILY 11/12/20 0 12/23/24 hr,extended release diazepam 2 mg tablet 2 mg PO BID PRN 03/01/2403/08 acetaminophen 325 mg tablet 975 mg (3 x 325 mg) PO ONC E PRN 12/23/24 (Tylenol) #60 tabs ibuprofen 600 mg tablet 600 mg PO Q6H PRN #30 tabs 0 12/23/24 Previous Rx's ?Medication ?Instructions ?Recorded acetaminophen 325 mg tablet 975 mg (3 x 325 mg) PO ONC E PRN 12/23/24 (Tylenol) #60 tabs ibuprofen 600 mg tablet 600 mg PO Q6H PRN #30 tabs 0 12/23/24 Allergies Allergy/AdvReac Type Severity Reaction Status Date / Time cephalexin (From Keflex) AdvReac Intermediate Diarrhea Unverified 12/23/24 13:34 Latex, Natural Rubber AdvReac Intermediate Swelling/Ed Unverified 12/23/24 13:34 zunilda General Stated Complaint: Orthopedic KAYLIN: 4 Course Vital Signs Vital signs: Vital Signs Temperature 36.9 C 12/23/24 13:27 Pulse 89 12/23/24 13:27 Respiratory Rate 14 12/23/24 13:27 Blood Pressure 124/82 12/23/24 13:27 Pulse Oximetry 100 12/23/24 13:27 Temperature 36.9 C 12/23/24 13:27 Temperature Source Oral 12/23/24 13:27 Pulse 89 12/23/24 13:27 Respiratory Rate 14 12/23/24 13:27 Blood Pressure 124/82 12/23/24 13:27 Blood Pressure Position Sitting 12/23/24 13:27 Pulse Oximetry 100 12/23/24 13:27 Oxygen Delivery Method Room Air 12/23/24 13:27 Oxygen Flow Rate 0 12/23/24 13:27 Pain Level 5 12/23/24 13:27 PFSH All Active Problems (Updated 12/23/24 @ 18:04 by Graham Hernandez MD) Injury of knee, left (Acute) Right ankle sprain (Acute) Recurrent urinary tract infection (Acute) Li's syndrome (Acute) Social History Smoking/Tobacco Use Status: Never Smoking risk assessment performed?: Yes Drug use: Never Substance use type: does not use Housing: house Do you feel safe at home: Yes Do you feel safe in your relationship?: Yes
--- NOTE | 2024-12-23 14:34 | DI.RAD_ITS ---
Exam(s) XR KNEE LT 3V AP,LAT,SUSU EXAM: XR KNEE LT 3V AP,LAT,SUSU CLINICAL HISTORY: left knee pain/swelling after fall. TECHNIQUE: 2D digital imaging was performed. Three views. COMPARISON: CR XR KNEE LT 3V AP,LAT,SUSU from 10/19/2024 FINDINGS: BONES: No acute fracture is present. No bony destructive lesion is seen. There is a suture anchor at the lateral lateral femoral condyle. JOINTS: There is severe narrowing of the patellofemoral joint with periarticular spurring. The femoral tibial joint spaces are maintained which show mild periarticular spurring. No joint effusion is seen. SOFT TISSUE: Normal. IMPRESSION: Postsurgical and degenerative changes, advanced for the patient's age. No acute abnormality. DATA REPOSITORY: RADIATION DOSE DELIVERED:
[2024-12-23] MEDS: oxyCODONE 5 MG TAB PO (14:43)
[2024-12-23] MEDS: Acetaminophen 500 MG TAB 1000 MG PO (14:44)
[2024-12-23] MEDS: Ibuprofen 600 MG TAB PO (14:45)
--- NOTE | 2024-12-23 16:45 | DI.CT_ITS ---
Exam(s) CT LOWER EXTREMITY LT WO EXAM: CT LOWER EXTREMITY LT WO CLINICAL HISTORY: unable to bear weight concern for tib plateau fx. TECHNIQUE: Imaging Protocol: Axial computed tomography images with coronal and sagittal reformatted images were created and reviewed. CONTRAST MATERIAL: Noncontrast COMPARISON: CR XR KNEE LT 3V AP,LAT,SUSU from 10/19/2024 CR XR KNEE LT 3V AP,LAT,SUSU from 12/23/2024 FINDINGS: Bones: There is no evidence of fracture or dislocation. No osteomyelitic changes are identified. No lytic or sclerotic lesions are identified. There are horizontally oriented lucencies in the patella related to previous surgery. There is a suture anchor along the lateral aspect distal femoral metaphysis with adjacent bony lucency related to previous surgery. There is spurring from the femoral condyles and tibial plateaus. The femoral tibial joint spaces are maintained. Joints: There is severe narrowing of the patellofemoral joint space. There is lateral patellar tilt and lateral patellar subluxation. There is a small to moderate-sized knee joint effusion. Soft Tissues: Normal. IMPRESSION: No evidence of acute fracture. Small to moderate-sized joint effusion. There are postsurgical and degenerative changes in greater of the patellofemoral joint. There is lateral patellar subluxation lateral patellar tilt which appears stable based on plain films from October 2024. RADIATION DOSE DELIVERED: Total DLP DATA REPOSITORY: All CT scans at this facility are submitted to the National Radiology Data Registry (NRDR) Dose Index Registry (DIR) with the [employer] (ACR). RADIATION OPTIMIZATION: All CT scans at this facility use at least one of these dose optimization techniques: automated exposure control; mA and/or kV adjustment per patient size (includes targeted exams where dose is matched to clinical indication); or iterative reconstruction.
[2024-12-23 16:59] VITALS: BP 117/58; PULSE 81; TEMP 36.2; O2SAT 100
== END 2024-12-23 18:40 | disposition home or self-care (01) ==
PROVIDERS: Emergency Provider General Practice; PCP Family Medicine
DX: S89.92XA Unspecified injury of left lower leg, initial encounter (principal); X58.XXXA Exposure to other specified factors, initial encounter
CPT/HCPCS: 99284; 99283; 73562; 73700

== ENCOUNTER 2025-01-27 22:48 | Observation (INO) | payer MEDICAID, SELFPAY ==
[2025-01-27 22:54] VITALS: BP 137/86; PULSE 116; RESP 18; TEMP 36.5; O2SAT 98
--- NOTE | 2025-01-27 23:05 | W.ED.GENAD ---
Discharge Plan Disposition Patient Disposition: Admit to [facility] Condition: Stable Discharge Details Clinical Impression: FB anus/rectum, Li's syndrome Primary Care Provider: Chiquis Adams ED Provider: Katie Rubio Home Meds and New Rx's Prescriptions: No Action pantoprazole 40 mg tablet,delayed release (DR/EC) 40 mg PO DAILY Patient Comments: TAKE 1 TABLET BY MOUTH ONCE DAILY propranolol 80 mg capsule,extended release 24 hr 80 mg PO DAILY Patient Comments: TAKE 1 CAPSULE BY MOUTH ONCE DAILY hydroxyzine HCl 25 mg tablet 25 mg PO BID Patient Comments: TAKE 1 TABLET BY MOUTH EVERY 8 HOURS NEEDED mirabegron [Myrbetriq] 50 mg tablet extended release 24 hr 50 mg PO DAILY Patient Comments: TAKE 1 TABLET BY MOUTH ONCE DAILY diazepam 2 mg tablet 2 mg PO BID PRN Patient Comments: TAKE 1 TABLET BY MOUTH EVERY 12 HOURS NEEDED FOR ANXIETY FOR 28 DAYS. MAX DAILY DOSE = 4 MG acetaminophen [Tylenol] 325 mg tablet 975 mg PO ONCE PRNQty: 60 0RF ibuprofen 600 mg tablet 600 mg PO Q6H PRNQty: 30 0RF HPI General Mode of arrival: ambulatory. Date/Time Provider Initiated Documentation: 01/27/25 22:50. Limitations to Documentation: no limitations. Information obtained by: patient and family. 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 Self-inserted a suture removal tool into her rectum just prior to arrival; unable to remove because it hurts too much. No pain when not attempting removal. No rectal bleeding. Also c/o concern for UTI with some hematuria and burning suprapubic pain for several days, not acutely worse in the last hour. Otherwise in her usual state of health with no fevers, chills, rash, flank pain, or other concerns. Denies sexual assault. Related Data Home Medications ?Medication ?Instructions ?Recorded ?Confirmed hydroxyzine HCl 25 mg tablet 25 mg PO BID 11/12/20 01/27/25 mirabegron 50 mg tablet,extended 50 mg PO DAILY 11/12/20 01/27/25 release 24 hr (Myrbetriq) pantoprazole 40 mg tablet,delayed 40 mg PO DAILY 11/12/20 01/27/25 release propranolol 80 mg capsule,24 80 mg PO DAILY 11/12/20 01/27/25 hr,extended release diazepam 2 mg tablet 2 mg PO BID PRN 03/01/24 01/27/25 acetaminophen 325 mg tablet 975 mg (3 x 325 mg) PO ONCE PRN 12/23/24 01/27/25 (Tylenol) #60 tabs ibuprofen 600 mg tablet 600 mg PO Q6H PRN #30 tabs 12/23/24 01/27/25 Previous Rx's ?Medication ?Instructions ?Recorded acetaminophen 325 mg tablet 975 mg (3 x 325 mg) PO ONCE PRN 12/23/24 (Tylenol) #60 tabs ibuprofen 600 mg tablet 600 mg PO Q6H PRN #30 tabs 12/23/24 Allergies Allergy/AdvReac Type Severity Reaction Status Date / Time aspartame Allergy migraine Verified 01/27/25 23:01 cephalexin (From Keflex) AdvReac Intermediate Diarrhea Unverified 01/27/25 23:01 Latex, Natural Rubber AdvReac Intermediate Swelling/Ed Unverified 01/27/25 23:01 [email or web address] General Stated Complaint: ForeignBody KAYLIN: 3 Review of Systems Narrative: see HPI Exam Narrative Exam Narrative: General: Alert, well appearing, well nourished, in no acute distress. Head: Normocephalic, atraumatic Neck: Trachea midline, ?Neck supple. ENT: ?MMM.? Cardiac: ?RRR, no murmurs appreciated Resp: No respiratory distress. CTAB. Abd: ?Soft, non-distended, mildly tender lower and suprapubic with no rebound or guarding. : ?Mild suprapubic tenderness. No CVA tenderness. External anorectal: Metallic foreign body protruding from rectum ~3cm, visible portion consistent with suture removal tool with plastic guard in place. No bleeding. Extremities: ?No deformities.? No peripheral edema. Neurologic: GCS 15. ? 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 No bleeding. No pain when not attempting removal. Denies sexual assault. Tachycardiac to 110's after ambualting into traige; vital signs otherwise reassuring. HR in 80's on my assessment, does have mild lower abdominal tenderness with no peritoneal signs. Metallic foreign body protruding from anus on exam consistent with suture removal tool with plastic guard in place (? tweezers, ?cutting implement). -Plain films independently reviewed, linear foreign body consistent with suture removal tool/tweezers (not scissors) and no free air or indication of perforation on my view; radiology read also with FB and no free air. -Given this is a linear object which is narrow throughout and the end is visible and well-protruded from anal orifice with safety guard in place, safe for bedside ED removal. Will apply viscous lidocaine to anal orifice for patient comfort and medicate with 25mg IM fentanyl prior to removal though expect minimal pain given size/shape/texture of object. Patient also requested something for anxiety and was given 1mg IM Versed. -Removed easily without resistance. -Rectal exam post removal with good tone, no blood, no defects palpable. -Repeat plain films independently reviewed; no free air on my view; radiology read with no acute findings. As patient also incidentally reported concern for UTI with some hematuria and burning suprapubic pain x several days UA was sent. She is systemically well with no flank pain, not concerned for sepsis, pyelonephritits. -UA not suggestive of infection. -On repeat exam she does have some mild lower abdominal/suprapubic tenderness and continues to c/o of rectal pain. No peritoneal signs. Unclear to what degree this is more chronic as she has had some lower abdominal pain for several days. Exam is not concerning for appendicitis, obstruction, ovarian torsion, perforation; would not get CT at this time. Does warrant further observation; considered utility of sigmoidoscopy to further evaluate given FB. Discussed with Dr. Silverman surgery who will evaluate patient in the morning; observation orders placed. Lab Data Lab results reviewed: Yes I reviewed the patient's lab results. Labs: Laboratory Tests Range/Units 01/27/25 23:40 Urine Color (Yellow) Yellow Urine Clarity (Clear) Cloudy Urine pH (5-8) 6.0 Ur Specific [place] (1.005-1.025) 1.025 Urine Protein (Neg-Trace) mg/dL Negative Urine Ketones (Negative) mg/dL Negative Urine Blood (Negative) Trace-intact H Urine Nitrite (Negative) Negative Urine Bilirubin (Negative) Negative Urine Urobilinogen (Up to 0.2) mg/dL 0.2 Ur Leukocyte Esterase (Negative) Negative Urine RBC (0-2) HPF 0-2 Urine WBC (0-5) HPF Negative Ur Epithelial Cells (Negative) HPF Rare Urine Crystals (Negative) HPF Negative Urine Bacteria (Negative) HPF Few Urine Casts (Negative) LPF Negative Urine Mucus (Negative) Negative Ur Culture Indicated? No Urine Glucose (Negative) mg/dL Negative Urine HCG, Qual Negative PFSH All Active Problems (Updated 01/28/25 @ 01:22 by Katie Rubio MD) FB anus/rectum (Acute) Rectal foreign body (Acute) No-show for appointment (Acute) Maltracking of right patella (Acute) Right ankle sprain (Acute) Recurrent urinary tract infection (Acute) Li's syndrome (Acute) Social History Smoking/Tobacco Use Status: Never Smoking risk assessment performed?: Yes Drug use: Never Substance use type: does not use Housing: house Do you feel safe at home: Yes Do you feel safe in your relationship?: Yes
--- NOTE | 2025-01-27 23:38 | DI.RAD_ITS ---
Exam(s) XR ABDOMEN FLAT LATERAL EXAM: 2D digital imaging was performed. CLINICAL HISTORY: rectal foreign body. COMPARISON: CT CT ABDOMEN PELVIS W from 03/01/2024 CR,XR XR ABDOMEN FLAT UPRIGHT from 01/28/2025 TECHNIQUE: Supine and uprightSupine and Lateral views of the abdomen were performed. FINDINGS: BOWEL GAS PATTERN: Nondistended.No free air. CALCIFICATIONS: No urinary tract calcifications. OSSEOUS STRUCTURES: Normal for age. Visualized portions of chest: Unremarkable. Soft tissues: There is an elongated min metallic foreign body located in the pelvis projecting either in the rectum or vagina. The foreign body appears to represent tweezers. IMPRESSION: 1. Nonobstructive bowel gas pattern. 2. Foreign body projecting in the rectum or vagina. 3. No free air. The preliminary [facility] report was reviewed. DATA REPOSITORY: RADIATION DOSE DELIVERED:
[2025-01-27 23:50] LABS: Glucose Negative (Negative)
[2025-01-27 23:56] LABS: HCG Qual (Urine) Negative
[2025-01-27 23:58] LABS: C & S Indicated? No; RBC 0-2 HPF (0-2); WBC Negative HPF (0-5)
[2025-01-28] VITALS (11 sets, daily range): BP systolic 122–124; BP diastolic 80–84; PULSE 92–115; RESP 16–18; TEMP 37–37.1; O2SAT 95–99
--- NOTE | 2025-01-28 | DI.RAD_ITS ---
Exam(s) XR ABDOMEN FLAT UPRIGHT EXAM: 2D digital imaging was performed. CLINICAL HISTORY: post FB removal, eval free air. COMPARISON: CR,XR XR ABDOMEN FLAT LATERAL from 01/27/2025 TECHNIQUE: Supine and uprightSupine and Lateral views of the abdomen were performed. FINDINGS: BOWEL GAS PATTERN: Nondistended.No free air. CALCIFICATIONS: No urinary tract calcifications. OSSEOUS STRUCTURES: Normal for age. Visualized portions of chest: Unremarkable. Soft tissues: The previously noted foreign body has been removed. IMPRESSION: 1. Nonobstructive bowel gas pattern. 2. Status post removal of foreign body. 3. No free air. The preliminary [facility] report was reviewed. DATA REPOSITORY: RADIATION DOSE DELIVERED:
--- NOTE | 2025-01-28 00:08 | DI.[facility]_ITS ---
Addendum created by Harry Weiner MD on 01/28/2025 12:10:31 AM EDT: Findings were discussed with MARIANNE WILCOX at 01/28/2025 12:10 AM EDT. Initial report created on 01/28/2025 12:07:29 AM EDT: PROCEDURE INFORMATION: Exam: XR Abdomen Exam date and time: 01/27/2025 11:25 PM Age: 29 years old Clinical indication: Other: Rectal foreign body; Prior surgery; Surgery date: 6+ months; Surgery type: Hysterectomy TECHNIQUE: Imaging protocol: Radiologic exam of the abdomen. Views: 2 Views. Upright and supine views. COMPARISON: CT ABDOMEN PELVIS W 03/01/2024 8:48 PM FINDINGS: Gastrointestinal tract: No over distention of bowel loops is seen. Intraperitoneal space: There is no free intraperitoneal air. Bones/joints: The spine, sacroiliac joints, and hip joints are normal. Soft tissues: The psoas margins are visualized and appear normal. A metallic mid pelvis foreign body is identified in the form of close forceps or tweezers. It may be in the vagina or the rectum the and part of it is anterior or external to the symphysis pubis. IMPRESSION: 1. Midline pelvic metallic foreign body as described above. Part of it appears to be outside of the pelvis. 2. No other acute abdominal process is identified. Dictated and Authenticated by: Harry Weiner MD. Orderin Joanne Wilson MD
[2025-01-28] MEDS: Midazolam 2 MG/2 ML VIAL 1 MG IM (00:25)
[2025-01-28] MEDS: fentaNYL 100 MCG/2 ML VIAL 25 MCG IM (00:25)
[2025-01-28] MEDS: Lidocaine 2% Jelly 11 ML SYR UR (00:26)
--- NOTE | 2025-01-28 00:42 | W.PM.HP.N ---
Date of service: 01/28/25 Time of Service: 00:42 Assessment and Plan Assessment and plan (1) Rectal foreign body: Assessment and plan: Admit for short course observation. If she develops any concerning symptoms, will directly visualized proctoscopy History of Present Illness History of Present Illness Chief Complaint: Rectal foreign body Narrative: Edyta is 29 years old. She inserted a wheezer in her anus, and was unable to retrieve it. She came to the emergency department. Images confirmed the presence of a retained foreign body consistent with a tweezer. On exam, it was visible in the anal column, and it was removed. PFSH All Active Problems (Updated 01/29/25 @ 00:01 by MINDY MISTRY) FB anus/rectum (Acute) No-show for appointment (Acute) Maltracking of right patella (Acute) Right ankle sprain (Acute) Recurrent urinary tract infection (Acute) Li's syndrome (Acute) Medical History (Updated 01/29/25 @ 00:01 by MINDY MISTRY) Rectal foreign body Social History Smoking/Tobacco Use Status: Never Smoking risk assessment performed?: Yes Drug use: Never Substance use type: does not use Housing: house Do you feel safe at home: Yes Do you feel safe in your relationship?: Yes Meds Allergies and Home Medications Allergies Allergy/AdvReac Type Severity Reaction Status Date / Time aspartame Allergy migraine Verified 01/27/25 23:01 cephalexin (From Keflex) AdvReac Intermediate Diarrhea Unverified 01/27/25 23:01 Latex, Natural Rubber AdvReac Intermediate Swelling/Ed Unverified 01/27/25 23:01 [email or web address] Home Medications ?Medication ?Instructions ?Recorded ?Confirmed ?Type hydroxyzine HCl 25 mg tablet 25 mg PO BID 11/12/20 01/27/25 History mirabegron 50 mg tablet,extended 50 mg PO DAILY 11/12/20 01/27/25 History release 24 hr (Myrbetriq) pantoprazole 40 mg tablet,delayed 40 mg PO DAILY 11/12/20 01/27/25 History release propranolol 80 mg capsule,24 80 mg PO DAILY 11/12/20 01/27/25 History hr,extended release diazepam 2 mg tablet 2 mg PO BID PRN 03/01/24 01/27/25 History acetaminophen 325 mg tablet 975 mg (3 x 325 mg) PO ONCE PRN 12/23/24 01/27/25 Rx (Tylenol) #60 tabs ibuprofen 600 mg tablet 600 mg PO Q6H PRN #30 tabs 12/23/24 01/27/25 Rx Exam Const General: cooperative, healthy appearing and comfortable [facility] Head: normal to inspection Eyes General: appearance normal, both eyes and all related structures Neck Neck: normal visual inspection, full ROM and no lymphadenopathy GI Inspection: normal to inspection and non-distended Palpation: soft and nontender Rectal Exam - female: visual inspection normal, normal sphincter tone, No laceration and No mass Results Labs 01/28/25 04:30 Labs: Laboratory Results - last 24 hr 01/27/25 23:40 Urine Color Yellow Urine Clarity Cloudy Urine pH 6.0 Ur Specific [place] 1.025 Urine Protein Negative Urine Ketones Negative Urine Blood Trace-intact H Urine Nitrite Negative Urine Bilirubin Negative Urine Urobilinogen 0.2 Ur Leukocyte Esterase Negative Urine RBC 0-2 Urine WBC Negative Ur Epithelial Cells Rare Urine Crystals Negative Urine Bacteria Few Urine Casts Negative Urine Mucus Negative Ur Culture Indicated? No Urine Glucose Negative Urine HCG, Qual Negative Last Vital Signs Temp 97.7 F 01/27/25 22:54 Pulse 116 H 01/27/25 22:54 Resp 18 01/27/25 22:54 BP 137/86 01/27/25 22:54 Pulse Ox 98 01/27/25 22:54 Time Spent Time spent with Patient: <40 minutes Time was spent: preparing to see the patient(eg.review tests), obtaining and/or reviewing separately otained hiistory, referring, communicating with other health home care administrator, indepentently interpreting results and counseling the patient
--- NOTE | 2025-01-28 01:15 | DI.[facility]_ITS ---
PROCEDURE INFORMATION: Exam: XR Abdomen Exam date and time: 01/28/2025 12:49 AM Age: 29 years old Clinical indication: Other: Post fb removal, eval free air TECHNIQUE: Imaging protocol: Radiologic exam of the abdomen. Views: 2 Views. Upright and supine views. COMPARISON: CR XR ABDOMEN FLAT LATERAL 01/27/2025 11:25 PM FINDINGS: Lungs: Bronchiectatic changes a drug lung base. Gastrointestinal tract: No over distention of bowel loops is seen. Intraperitoneal space: There is no free intraperitoneal air. Bones/joints: The spine, sacroiliac joints, and hip joints are normal. Soft tissues: The right psoas margin is visualized and appears normal. The left psoas margin is not clearly visualized, likely due to rotation of the patient. IMPRESSION: No acute process is identified. Dictated and Authenticated by: Harry Weiner MD. Orderin Joanne Wilson MD
[2025-01-28] MEDS: Lactated Ringers 1,000 ML 75 ML IV (02:55)
[2025-01-28] MEDS: Ondansetron 4 MG/2 ML VIAL IVP (03:22)
--- NOTE | 2025-01-28 04:20 | W.PC.ACHO ---
Registration Status: ADM EVANGELISTA Primary Language: Preferred Language: ED Information & Data Chief Complaint ForeignBody 01/27/25 23:05 Triage Note patient used the blunt end 01/27/25 22:54 of a suture removal machine into her rectum which still remains up in there. Patient also has a history of mental health issues. Patient friend who is with her gives the history that patient is also self catheter through her belly buttom Most Recent Vital Signs Temperature 37.0 C 01/28/25 01:34 Temperature Source Temporal Artery Scan 01/28/25 01:34 Pulse 98 H 01/28/25 01:57 Respiratory Rate 18 01/28/25 01:57 Respiratory Effort Normal 01/28/25 01:35 Respiratory Depth Normal 01/28/25 01:35 Respiratory Pattern Normal 01/28/25 01:35 Blood Pressure 124/84 01/28/25 01:34 Blood Pressure Mean 97 01/28/25 01:34 Pulse Oximetry 99 01/28/25 01:57 Oxygen Delivery Method Room Air 01/28/25 01:34 Oxygen Flow Rate 0 01/28/25 01:34 Pain Level 2 01/28/25 01:57 Allergies aspartame Allergy (Verified 01/27/25 23:01) migraine cephalexin (From Keflex) Adverse Reaction (Intermediate, Unverified 01/27/25 23:01) Diarrhea Latex, Natural Rubber Adverse Reaction (Intermediate, Unverified 01/27/25 23:01) Swelling/Edema Active Medications Generic Name Dose Route Start Last Admin Trade Name Freq PRN Reason Stop Dose Admin Ringer's Solution 1,000 mls @ 75 mls/hr 01/28/25 01:40 01/28/25 02:55 IV 75 mls/hr INFUSION RANJEET Administration Ondansetron HCl 4 mg 01/28/25 01:40 01/28/25 03:22 Ondansetron 4 Mg/2 Ml Vial IVP 4 mg Q4H PRN PRN Administration IV IV Catheter Type [Right Hand] Saline Lock IV Catheter Gauge [Right Hand] 20 Diet Orders Category Date Time Status Nothing Per Oral [DIET] Nutrition 01/28/25 01:40 Active Diagnostics 01/28/25 01/27/25 Range/Units 00:41 23:40 WBC Pending RBC Pending Hgb Pending Hct Pending MCV Pending MCH Pending MCHC Pending RDW Pending Plt Count Pending MPV Pending Immature Gran % Pending Neutrophils % Pending Lymphocytes % Pending Monocytes % Pending Eosinophils % Pending Basophils % Pending Absolute Neutrophils Pending Absolute Lymphocytes Pending Absolute Monocytes Pending Absolute Eosinophils Pending Absolute Basophils Pending Urine Color Yellow (Yellow) Urine Clarity Cloudy (Clear) Urine pH 6.0 (5-8) Ur Specific [place] 1.025 (1.005-1.025) Urine Protein Negative (Neg-Trace) mg/dL Urine Ketones Negative (Negative) mg/dL Urine Blood Trace-intact H (Negative) Urine Nitrite Negative (Negative) Urine Bilirubin Negative (Negative) Urine Urobilinogen 0.2 (Up to 0.2) mg/dL Ur Leukocyte Esterase Negative (Negative) Urine RBC 0-2 (0-2) HPF Urine WBC Negative (0-5) HPF Ur Epithelial Cells Rare (Negative) HPF Urine Crystals Negative (Negative) HPF Urine Bacteria Few (Negative) HPF Urine Casts Negative (Negative) LPF Urine Mucus Negative (Negative) Ur Culture Indicated? No Urine Glucose Negative (Negative) mg/dL Urine HCG, Qual Negative Intake and Output - 24 Hour Total 01/27/25 22:48 thru 01/28/25 02:52 Intake Total 10 Output Total 580 Balance -570 Weight 68.124 kg Intake: IV 10 Output: Urine 580 Other: Urine Color Pale Yellow Urine Appearance Cloudy Mucous Threads Comment Patient bladder scanned for residual post catheterization - 106mL largest value found. Urinary Catheter Time of insertion [Suprapubic] 01:45 Time of insertion [Suprapubic] 00:45 Falls Risk Assessment History of Falls No History 01/28/25 00:26 Contributing Factors No Factors 01/28/25 00:26 Ambulatory Aids Independent 01/28/25 00:26 Tubes/Lines None 01/28/25 00:26 Gait Evaluation No gait disturbance 01/28/25 00:26 Cognition No cognitive impairment 01/28/25 00:26 Fall Total Score 0 01/28/25 00:26 Level of Risk Standard/Low Risk 01/28/25 00:26 Problems (Last Updated 11/12/20 @ 18:06 by Jazzy Kaiser NP) Rectal foreign body (Acute) v v v v v v v v v Sending and/or Receiving Nurses: Please use comment section below to note any information pertinent to the patient hand-off not included above. Information / Comments: Report received from: Gavi Howell RN
[2025-01-28] MEDS: Acetaminophen 325 MG TAB 650 MG PO (04:28)
[2025-01-28 04:40] LABS: Abs Immature Grans 0.02 10^3/uL (0.0-0.06); HCT 35.0 % (36.0-46.0); HGB 12.2 g/dL (11.2-15.7); Immature Grans % 0.2 %; MCH 30.1 pg (27.0-33.0); MCHC 34.9 % (32.0-36.0); MCV 86 fL (80-95); MPV 9.2 fL (8.0-11.0); Platelet Count 274 10^3/uL (130-400); RBC 4.05 10^6/uL (3.93-5.22); RDW 11.0 % (11.7-14.6); RDW-SD 34.4 fL; WBC 9.04 10^3/uL (4.4-10.8)
[2025-01-28] MEDS: Polyethylene Glycol 3350 17 GM PACKET PO (08:33)
[2025-01-28] MEDS: Normal Saline Flush 10 ML SYR IVP (08:34)
--- NOTE | 2025-01-28 08:53 | PDOC.CMIN ---
Date of service: 01/28/25 Time of Service: 08:53 Care Management Initial Assmt Initial Assessment Reason for Hospitalization: foreign body Functional Status/Living Situation Town of Residence: [place], [place] Resides with: Spouse (Maurilio) Instrumental Activities of Daily Living (ADLs): Independent Medications Medication Management: No Issues/Barriers identified Physical Functioning/Mobility Assistive Device: none Advance Directives Advance Directives: Do you have an Advance Directive: N Today, 07:42 AD On File at [facility]: N 11/26/22, 17:03 Date Asked 01/28/25 Today, 07:42 AD Date Reviewed COLST On File at [facility] COLST Date Scanned Code Status Resuscitation Status Full Code Insurance Coverage/Financial Issues Insurance: Medicaid Care Team Visit Care Team Role Provider Type Chiquis Adams Primary Care Provider NON-[facility] STAFF PHYSICIAN Katie Rubio MD Emergency Provider [facility] STAFF PHYSICIAN Adán Silverman MD Admit Provider [facility] STAFF PHYSICIAN Attending Provider Discharge Potential Discharge Needs: Surgical F/U Appt Anticipated Barriers to Discharge: None Identified Patient/Family Education Needs: Review discharge instructions, discuss Ask Me Three Transportation: Private vehicle Plan: Anticipate Edyta will be discharged home with no new services when medically cleared. She will follow up with her PCP and plan of care and transport with family. CM will follow and continue to support discharge planning efforts. Social Determinants of Health Screening Will the Patient Participate in the Screening?: Declined to provide PFSH All Active Problems (Updated 01/28/25 @ 01:22 by Katie Rubio MD) FB anus/rectum (Acute) Rectal foreign body (Acute) No-show for appointment (Acute) Maltracking of right patella (Acute) Right ankle sprain (Acute) Recurrent urinary tract infection (Acute) Li's syndrome (Acute) Social History Smoking/Tobacco Use Status: Never Smoking risk assessment performed?: Yes Drug use: Never Substance use type: does not use Housing: house Do you feel safe at home: Yes Do you feel safe in your relationship?: Yes
--- NOTE | 2025-01-28 10:06 | DSE_ITS ---
Date of service: 01/28/25 Time of Service: 10:06 DS: Diagnosis Discharge Diagnosis (1) Rectal foreign body: Status: Acute Discharge Plan Disposition Patient Disposition: Home Condition: Good Discharge Details Reason For Visit: Rectal Foreign Body Admit Date/Time: 01/28/25 00:41 Admit Provider: Adán Silverman Attending Provider: Adán Silverman Primary Care Provider: Chiquis Adams Hospital Course Hospital Course: 29 y/o female who presented to the ER following insertion of tweezers into her anus, which she was unable to retrieve. The tweezers were removed in the ER and she was admitted overnight for observation to ensure no concerning symptoms would arise. Over night she did well without any concerns. She will d/c home. She should follow up with her PCP and Urologist regarding her concerns of progressively worsening constipation and difficulties with straight cathing. Home Meds and New Rx's Prescriptions: Continued pantoprazole 40 mg tablet,delayed release (DR/EC) 40 mg PO DAILY Patient Comments: TAKE 1 TABLET BY MOUTH ONCE DAILY propranolol 80 mg capsule,extended release 24 hr 80 mg PO DAILY Patient Comments: TAKE 1 CAPSULE BY MOUTH ONCE DAILY hydroxyzine HCl 25 mg tablet 25 mg PO BID Patient Comments: TAKE 1 TABLET BY MOUTH EVERY 8 HOURS NEEDED mirabegron [Myrbetriq] 50 mg tablet extended release 24 hr 50 mg PO DAILY Patient Comments: TAKE 1 TABLET BY MOUTH ONCE DAILY diazepam 2 mg tablet 2 mg PO BID PRN Patient Comments: TAKE 1 TABLET BY MOUTH EVERY 12 HOURS NEEDED FOR ANXIETY FOR 28 DAYS. MAX DAILY DOSE = 4 MG acetaminophen [Tylenol] 325 mg tablet 975 mg PO ONCE PRNQty: 60 0RF ibuprofen 600 mg tablet 600 mg PO Q6H PRNQty: 30 0RF Discharge Instructions Activity:: Activity as Tolerated Equipment/Supplies:: No Equipment Needed Diet:: Normal Diet Discharge Orders Discharge Orders: Discharge Order (Routine); Ordered 01/28/25 Ordered By: Paulette Lanier DS: Summary Time Spent with Patient providing and/or coordinating discharge services: Less than 30 minutes Status at Discharge Functional status at discharge: independent ambulation Overall status at discharge: patient is back to baseline Mental Status: mental status grossly normal Speech and Movement: speech and movement normal Mood: congruent mood Affect: blunted Exam Const General: cooperative, healthy appearing and comfortable Orientation: alert and oriented x3 Resp Effort & Inspection: normal respiratory effort, no audible wheezes and no cough GI Inspection: normal to inspection Psych Mental Status: mental status grossly normal Speech and Movement: speech and movement normal Mood: congruent mood Affect: blunted DS: Data Vitals/I&O Vitals and I&O: Vital Signs Temperature 37.1 C 01/28/25 07:11 Temperature Source Temporal Artery Scan 01/28/25 01:34 Pulse 113 H 01/28/25 07:11 Respiratory Rate 16 01/28/25 07:11 Respiratory Effort Normal 01/28/25 01:35 Respiratory Depth Normal 01/28/25 01:35 Respiratory Pattern Normal 01/28/25 01:35 Blood Pressure 122/80 01/28/25 07:11 Blood Pressure Mean 93 01/28/25 07:11 Pulse Oximetry 95 01/28/25 07:11 Oxygen Delivery Method Room Air 01/28/25 01:34 Oxygen Flow Rate 0 01/28/25 01:34 Pain Level 2 01/28/25 01:57 Intake & Output 01/27/25 01/28/25 01/28/25 18:59 06:59 18:59 Intake Total 752.5 / 752.5 Output Total 580 / 580 466 / 466 Balance -570 / -570 286.5 / 286.5 Weight 68.124 kg Intake: IV 392.5 / 392.5 Oral 360 / 360 Output: Urine 580 / 580 450 / 450 Post Void Residual Other: Urine Color Pale Yellow Yellow Urine Appearance Cloudy Clear Mucous Threads Comment Patient bladder scanned for residual post catheterization - 106mL largest value found. bladder scan complete after pt self cath via umbilical site Data Completed and Pending Labs on day of discharge: Labs from last 24 hours 01/28/25 01/27/25 04:30 23:40 WBC 9.04 RBC 4.05 Hgb 12.2 Hct 35.0 L MCV 86 MCH 30.1 MCHC 34.9 RDW 11.0 L Plt Count 274 MPV 9.2 Immature Gran % 0.2 Neutrophils % 71.7 Lymphocytes % 19.9 Monocytes % 6.9 Eosinophils % 0.9 Basophils % 0.4 Nucleated RBC % 0.0 Absolute Neutrophils 6.48 Absolute Lymphocytes 1.80 Absolute Monocytes 0.62 Absolute Eosinophils 0.08 Absolute Basophils 0.04 Urine Color Yellow Urine Clarity Cloudy Urine pH 6.0 Ur Specific [place] 1.025 Urine Protein Negative Urine Ketones Negative Urine Blood Trace-intact H Urine Nitrite Negative Urine Bilirubin Negative Urine Urobilinogen 0.2 Ur Leukocyte Esterase Negative Urine RBC 0-2 Urine WBC Negative Ur Epithelial Cells Rare Urine Crystals Negative Urine Bacteria Few Urine Casts Negative Urine Mucus Negative Ur Culture Indicated? No Urine Glucose Negative Urine HCG, Qual Negative PFSH All Active Problems (Updated 01/28/25 @ 01:22 by Katie Rubio MD) FB anus/rectum (Acute) Rectal foreign body (Acute) No-show for appointment (Acute) Maltracking of right patella (Acute) Right ankle sprain (Acute) Recurrent urinary tract infection (Acute) Li's syndrome (Acute) Social History Smoking/Tobacco Use Status: Never Smoking risk assessment performed?: Yes Drug use: Never Substance use type: does not use Housing: house Do you feel safe at home: Yes Do you feel safe in your relationship?: Yes Time Spent with Patient Time Spent with Patient: <45 minutes Time was spent: counseling the patient
[2025-01-28] MEDS: FLU Vaccine TS 2025-26 PF (36MOS UP) 45 MCG/0.5 ML SYR IM (10:40)
--- NOTE | 2025-01-28 12:12 | PDOC.CMPRO ---
Date of service: 01/28/25 Time of Service: 12:12 Care Management Progress Note Progress Note Text Progress Note Text: Edyta was admitted on 01/27/25 with a foreign body in her rectum causing pain. The object was removed and she was observed overnight. She felt well and experienced no complications, so was discharged home this morning. No services needed. Discharge Potential Discharge Needs: PCP F/U Appt Anticipated Barriers to Discharge: None Identified Patient/Family Education Needs: Review discharge instructions, discuss Ask Me Three Transportation: Private vehicle Plan: Edyta will be discharged home with no new services. She will follow up with her community providers and plan of care and transport with family. Social Determinants of Health Screening Will the Patient Participate in the Screening?: Declined to provide
== END 2025-01-28 11:34 | disposition home or self-care (01) ==
LOC: ER 01-28 01:22 → ICU 01-28 01:33
PROVIDERS: Admitting Provider Surgery; Emergency Provider Student in an Organized Health Care Education/Training Program; PCP Family Medicine; Responsible Provider Surgery; Visit Provider Surgery
DX: T18.5XXA Foreign body in anus and rectum, initial encounter (principal); R39.198 Other difficulties with micturition; Z79.899 Other long term (current) drug therapy; R31.9 Hematuria, unspecified; K62.89 Other specified diseases of anus and rectum; R10.24 Suprapubic pain
CPT/HCPCS: 51701; 51798; 90656; 96372; 99285; 74019; 81003; 81015; 81025; 85025; G0378; J2250; J2405; J3010

== ENCOUNTER 2025-03-24 19:04 | Emergency (ER) | payer MEDICAID, SELFPAY ==
[2025-03-24] VITALS (26 sets, daily range): BP systolic 91–149; BP diastolic 44–101; PULSE 105–129; RESP 12–33; TEMP 37.5; O2SAT 96–99
--- NOTE | 2025-03-24 19:00 | RT.EKG_ITS ---
APPROVED REPORT Exam: Resting ECG Reason for Exam: overdose Patient Location: E HR:119 bpm ECG Measurements Heart Rate 119 AXIS MD 142 P 34 QRSd 82 QRS 49 QT 340 T -25 QTc 477 Conclusion Sinus tachycardia...rate> 99 No STEMI
--- NOTE | 2025-03-24 19:14 | W.ED.GENAD ---
Discharge Plan Discharge Details Chief Complaint: OD/Poison Clinical Impression: Intentional overdose of drug in tablet form, History of recurrent UTIs Primary Care Provider: Chiquis Adams ED Provider: Graham Hernandez Home Meds and New Rx's Prescriptions: No Action pantoprazole 40 mg tablet,delayed release (DR/EC) 40 mg PO DAILY Patient Comments: TAKE 1 TABLET BY MOUTH ONCE DAILY propranolol 80 mg capsule,extended release 24 hr 80 mg PO DAILY Patient Comments: TAKE 1 CAPSULE BY MOUTH ONCE DAILY hydroxyzine HCl 25 mg tablet 25 mg PO BID Patient Comments: TAKE 1 TABLET BY MOUTH EVERY 8 HOURS NEEDED mirabegron [Myrbetriq] 50 mg tablet extended release 24 hr 50 mg PO DAILY Patient Comments: TAKE 1 TABLET BY MOUTH ONCE DAILY diazepam 2 mg tablet 2 mg PO BID PRN Patient Comments: TAKE 1 TABLET BY MOUTH EVERY 12 HOURS NEEDED FOR ANXIETY FOR 28 DAYS. MAX DAILY DOSE = 4 MG acetaminophen [Tylenol] 325 mg tablet 975 mg PO ONCE PRNQty: 60 0RF ibuprofen 600 mg tablet 600 mg PO Q6H PRNQty: 30 0RF HPI General Date/Time Provider Initiated Documentation: 03/24/25 19:14. HPI Narrative: MDM/Narrative: Female presents for intentional overdose. Vital signs notable for tachycardia mild hypertension. No significant toxidrome on examination. Reportedly took 600 to 1000 mg of trazodone. Will obtain screening labs and discussed with poison control. Once medically cleared, will discuss with behavioral health to determine safety planning versus inpatient admission for intentional self-harm tonight. ED Course: Case discussed with poison control recommends obtaining basic lab work, as well as coingestion labs but notes to please draw although acetaminophen level at 10 PM. They would recommend monitoring for 4 hours and if patient is no more than mildly drowsy she would be cleared for crisis evaluation. 2200 Patient remains alert and oriented x 4. Pending acetaminophen level she is medically cleared for evaluation by [facility] to determine disposition. Patient care signed out to Dr. Marie pending [facility] eval and disposition. Disposition: Pending HPI: 29-year-old female past med history of autism, Li syndrome, status post [place], presents for evaluation of intentional ingestion. Patient states that she was upset while talking to family members and in response took somewhere between 600 to 1000 mg of trazodone which was prescribed to her dog. This happened at approximately 6 PM tonight. She denies any current symptoms. She denies any suicidal ideation or homicidal ideation. Notes history of anxiety and that she is currently being treated for a urinary tract infection taking Bactrim DS. ROS: Negative besides as mentioned above Exam: Gen: A&O NAD HEENT: NCAT, EOMI, not icteric. External ears normal. No rhinorrhea. Moist mucous membranes. Neck: Supple, full range of motion, no observable masses, No meningeal sign. Lungs: No Respiratory distress. CV: RRR, no edema. Abdomen: Soft, nondistended, No rebound tenderness. MSK: No joint swelling, no redness. Skin: No rashes, petechiae, lesions. Normal color per patient. Neuro: Normal Gait, Grossly intact. Psych: Appropriate for situation. Rhythm: Sinus tach Rate: 119 [place]: Normal axis Intervals: QTc: 477, MO 142, QRS 82 Other findings: No acute ST segment or T wave changes to suggest acute ischemia. Labs: Laboratory Tests Range/Units 03/24/25 03/24/25 03/24/25 19:02 19:28 19:58 WBC (4.4-10.8) 10^3/uL 6.29 RBC (3.93-5.22) 10^6/uL 3.81 L Hgb (11.2-15.7) g/dL 11.2 Hct (36.0-46.0) % 32.7 L MCV (80-95) fL 86 MCH (27.0-33.0) pg 29.4 MCHC (32.0-36.0) % 34.3 RDW (11.7-14.6) % 10.8 L Plt Count (130-400) 10^3/uL 261 MPV (8.0-11.0) fL 9.2 Immature Gran % % 0.3 Neutrophils % % 65.7 Lymphocytes % % 26.4 Monocytes % % 6.0 Eosinophils % % 1.1 Basophils % % 0.5 Nucleated RBC % (0.0-0.3) % 0.0 Absolute Neutrophils (1.2-6.7) 10^3/uL 4.13 Absolute Lymphocytes (1.2-3.4) 10^3/uL 1.66 Absolute Monocytes (0.1-0.8) 10^3/uL 0.38 Absolute Eosinophils (0.0-0.7) 10^3/uL 0.07 Absolute Basophils (0.0-0.2) 10^3/uL 0.03 VBG pH (7.31-7.41) 7.42 H VBG pCO2 (41-51) mmHg 38 L VBG pO2 mmHg 38 VBG HCO3 (23-28) mmol/L 25 VBG Total CO2 (24-29) mmol/L 23 L VBG O2 Saturation % 72 VBG Base Excess (-2-3) mmol/L 0 Sodium (136-145) mmol/L 138 Potassium (3.5-5.1) mmol/L 4.0 Chloride (98-107) mmol/L 106 Carbon Dioxide (20.0-31.0) mmol/L 23.6 Anion Gap (3-11) mmol/L 8.4 BUN (9-23) mg/dL 17 Creatinine (0.55-1.02) mg/dL 0.83 Est GFR (CKD-EPI 2020) (mL/min/1.73m2) 80.82 Glucose (74-106) mg/dL 116 H Calcium (8.3-10.6) mg/dL 8.9 Magnesium (1.6-2.6) mg/dL 1.9 Total Bilirubin (0.2-1.2) mg/dL 0.3 AST (<34) U/L 15 ALT (10-49) U/L 11 Alkaline Phosphatase (46-116) U/L 26 L Total Protein (5.7-8.2) g/dL 6.8 Albumin (3.2-5.0) g/dL 4.3 Lipase (<53) U/L 46 Serum HCG, Qual Negative Urine Color (Yellow) Yellow Urine Clarity (Clear) Clear Urine pH (5-8) 6.0 Ur Specific [place] (1.005-1.025) >= 1.030 H Urine Protein (Neg-Trace) mg/dL Trace Urine Ketones (Negative) mg/dL Negative Urine Blood (Negative) Negative Urine Nitrite (Negative) Negative Urine Bilirubin (Negative) Negative Urine Urobilinogen (Up to 0.2) mg/dL 0.2 Ur Leukocyte Esterase (Negative) Negative Urine Glucose (Negative) mg/dL Negative Salicylates (<30.0) mg/dL < 3.0 Urine Opiates Screen (Negative) Negative Urine Methadone Screen (Negative) Negative Acetaminophen Cancelled Ur Barbiturates Screen (Negative) Negative Ur Tricyclics Screen (Negative) Negative Ur Amphetamines Screen (Negative) Negative U Benzodiazepines Scrn (Negative) Positive A Urine Cocaine Screen (Negative) Negative U Cannabinoids Screen (Negative) Negative Ethyl Alcohol (<3) mg/dL < 3.0 Range/Units 03/24/25 22:02 WBC (4.4-10.8) 10^3/uL RBC (3.93-5.22) 10^6/uL Hgb (11.2-15.7) g/dL Hct (36.0-46.0) % MCV (80-95) fL MCH (27.0-33.0) pg MCHC (32.0-36.0) % RDW (11.7-14.6) % Plt Count (130-400) 10^3/uL MPV (8.0-11.0) fL Immature Gran % % Neutrophils % % Lymphocytes % % Monocytes % % Eosinophils % % Basophils % % Nucleated RBC % (0.0-0.3) % Absolute Neutrophils (1.2-6.7) 10^3/uL Absolute Lymphocytes (1.2-3.4) 10^3/uL Absolute Monocytes (0.1-0.8) 10^3/uL Absolute Eosinophils (0.0-0.7) 10^3/uL Absolute Basophils (0.0-0.2) 10^3/uL VBG pH (7.31-7.41) VBG pCO2 (41-51) mmHg VBG pO2 mmHg VBG HCO3 (23-28) mmol/L VBG Total CO2 (24-29) mmol/L VBG O2 Saturation % VBG Base Excess (-2-3) mmol/L Sodium (136-145) mmol/L Potassium (3.5-5.1) mmol/L Chloride (98-107) mmol/L Carbon Dioxide (20.0-31.0) mmol/L Anion Gap (3-11) mmol/L BUN (9-23) mg/dL Creatinine (0.55-1.02) mg/dL Est GFR (CKD-EPI 2020) (mL/min/1.73m2) Glucose (74-106) mg/dL Calcium (8.3-10.6) mg/dL Magnesium (1.6-2.6) mg/dL Total Bilirubin (0.2-1.2) mg/dL AST (<34) U/L ALT (10-49) U/L Alkaline Phosphatase (46-116) U/L Total Protein (5.7-8.2) g/dL Albumin (3.2-5.0) g/dL Lipase (<53) U/L Serum HCG, Qual Urine Color (Yellow) Urine Clarity (Clear) Urine pH (5-8) Ur Specific [place] (1.005-1.025) Urine Protein (Neg-Trace) mg/dL Urine Ketones (Negative) mg/dL Urine Blood (Negative) Urine Nitrite (Negative) Urine Bilirubin (Negative) Urine Urobilinogen (Up to 0.2) mg/dL Ur Leukocyte Esterase (Negative) Urine Glucose (Negative) mg/dL Salicylates (<30.0) mg/dL Urine Opiates Screen (Negative) Urine Methadone Screen (Negative) Acetaminophen < 2 L Ur Barbiturates Screen (Negative) Ur Tricyclics Screen (Negative) Ur Amphetamines Screen (Negative) U Benzodiazepines Scrn (Negative) Urine Cocaine Screen (Negative) U Cannabinoids Screen (Negative) Ethyl Alcohol (<3) mg/dL Related Data Home Medications ?Medication ?Instructions ?Recorded ?Confirmed hydroxyzine HCl 25 mg tablet 25 mg PO BID 11/12/20 01/27/25 mirabegron 50 mg tablet,extended 50 mg PO DAILY 11/12/20 01/27/25 release 24 hr (Myrbetriq) pantoprazole 40 mg tablet,delayed 40 mg PO DAILY 11/12/20 01/27/25 release propranolol 80 mg capsule,24 80 mg PO DAILY 11/12/20 01/27/25 hr,extended release diazepam 2 mg tablet 2 mg PO BID PRN 03/01/24 01/27/25 acetaminophen 325 mg tablet 975 mg (3 x 325 mg) PO ONCE PRN 12/23/24 01/27/25 (Tylenol) #60 tabs ibuprofen 600 mg tablet 600 mg PO Q6H PRN #30 tabs 12/23/24 01/27/25 Previous Rx's ?Medication ?Instructions ?Recorded acetaminophen 325 mg tablet 975 mg (3 x 325 mg) PO ONCE PRN 12/23/24 (Tylenol) #60 tabs ibuprofen 600 mg tablet 600 mg PO Q6H PRN #30 tabs 12/23/24 Allergies Allergy/AdvReac Type Severity Reaction Status Date / Time aspartame Allergy migraine Verified 03/24/25 20:06 cephalexin (From Keflex) AdvReac Intermediate Diarrhea Unverified 03/24/25 20:06 Latex, Natural Rubber AdvReac Intermediate Swelling/Ed Unverified 03/24/25 20:06 zunilda General KAYLIN: 3 PFSH All Active Problems (Updated 03/24/25 @ 21:45 by Graham Hernandez MD) History of recurrent UTIs (Acute) Intentional overdose of drug in tablet form (Acute) FB anus/rectum (Acute) No-show for appointment (Acute) Maltracking of right patella (Acute) Right ankle sprain (Acute) Recurrent urinary tract infection (Acute) Li's syndrome (Acute) Medical History (Updated 03/24/25 @ 21:45 by Graham Hernandez MD) Rectal foreign body Social History Smoking/Tobacco Use Status: Never Smoking risk assessment performed?: Yes Alcohol Intake: current Alcohol Intake frequency: holidays/special occasions only Drug use: Never Substance use type: does not use Housing: house Do you feel safe at home: Yes Do you feel safe in your relationship?: Yes
[2025-03-24 19:38] LABS: BE (Venous) 0 mmol/L (-2-3); HCO3 (Venous) 25 mmol/L (23-28); O2 Sat (Venous) 72 %; TCO2 (Venous) 23 mmol/L (24-29); pCO2 (Venous) 38 mmHg (41-51); pO2 (Venous) 38 mmHg
[2025-03-24 19:39] LABS: Abs Immature Grans 0.02 10^3/uL (0.0-0.06); HCT 32.7 % (36.0-46.0); HGB 11.2 g/dL (11.2-15.7); Immature Grans % 0.3 %; MCH 29.4 pg (27.0-33.0); MCHC 34.3 % (32.0-36.0); MCV 86 fL (80-95); MPV 9.2 fL (8.0-11.0); Platelet Count 261 10^3/uL (130-400); RBC 3.81 10^6/uL (3.93-5.22); RDW 10.8 % (11.7-14.6); RDW-SD 33.8 fL; WBC 6.29 10^3/uL (4.4-10.8)
[2025-03-24 19:56] LABS: Lipase 46 U/L (<53); Magnesium 1.9 mg/dL (1.6-2.6)
[2025-03-24 19:58] LABS: ALT 11 U/L (10-49); AST 15 U/L (<34); Albumin 4.3 g/dL (3.2-5.0); Alkaline Phosphatase 26 U/L (46-116); Anion Gap 8.4 mmol/L (3-11); BUN 17 mg/dL (9-23); Bilirubin, Total 0.3 mg/dL (0.2-1.2); CO2 23.6 mmol/L (20.0-31.0); Calcium 8.9 mg/dL (8.3-10.6); Chloride 106 mmol/L (98-107); Glucose 116 mg/dL (74-106); Potassium 4.0 mmol/L (3.5-5.1); Sodium 138 mmol/L (136-145); Total Protein 6.8 g/dL (5.7-8.2)
[2025-03-24 20:15] LABS: Salicylate < 3.0 mg/dL (<30.0)
[2025-03-24 20:16] LABS: HCG Qual (Serum) Negative
[2025-03-24 20:24] LABS: Glucose Negative (Negative)
[2025-03-24 20:33] LABS: Cannabinoids THC Negative (Negative)
[2025-03-24] MEDS: Sulfameth/Trimeth DS TAB 1 TAB PO (21:58)
[2025-03-24 22:32] LABS: Acetaminophen < 2 ug/mL (10-20)
[2025-03-25] VITALS (11 sets, daily range): BP systolic 86–117; BP diastolic 52–63; PULSE 109–130; RESP 14–22; O2SAT 96–97
[2025-03-25] MEDS: Ondansetron O.D.T. 4 MG TABEF PO (00:34)
--- NOTE | 2025-03-25 01:06 | PDOC.MHCN ---
Date of service: 03/24/25 Time of Service: 23:02 PHQ-9 Over the last 2 weeks, how often have you been bothered by any of the following problems? 1. Little interest or pleasure in doing things: several days 2. Feeling down, depressed, or hopeless: not at all 3. Trouble falling or staying asleep, or sleeping too much: more than half the days 4. Feeling tired or having little energy: several days 5. Poor appetite or overeating: not at all 6. Feeling bad about yourself - or that you are a failure or have let yourself and your family down: not at all 7. Trouble concentrating on things, such as reading the newspaper or watching television: several days 8. Moving or speaking so slowly that other people could have noticed? - Or the opposite - being so fidgety or restless that you have been moving around a lot more than usual: several days 9. Thoughts that you would be better off or of hurting yourself in some way: not at all Total score: 6 If you checked off any problems, how difficult have these problems made it for you to do your work, take care of things at home, or get along with other people?: very difficult Source: Developed by Drs. Vikas Hamilton, Francoise Sanchez, Gerhard Owens and colleagues, with an educational joan from [employer]. Suicide Severity Rate CSSRS Have you wished you were or wished you could go to sleep and not wake up?: No Have you actually had any thoughts of killing yourself?: No CSSRS3 Have you ever done anything, started to do anything or prepared to do anything to end your life?: No Screening Score Total Score: 0 Screening: Negative Mental Health Emergency Note Release [facility] release signed:: Yes Reason for Visit The client presented to the [facility] ED after consuming 6-10 trazadone pills that are prescribed to her pet dog. The client is known to [facility] and this clinician in a limited capacity. The client self-reports to have never been hospitalized in the past for her mental health. In the last 2 weeks has the pt presented for ES prior to today?: No Client Information Client is: New Well Housed: Yes Non Suicidal Self Injury Current: No History: yes, The client reports sometimes hitting herself and biting her lips when experiencing anxiety. Safety Risk/Harm to Self or Others Current Ideation to Harm Self or Others: No CALM/Risk Level Does risk to harm exist?: yes. Access to means: Yes. Types of Means: Other weapons and Medication. Details: The client reported having access to medications and SHARPS within the home. . Counseling provided: No Risk: Moderate Risk Duty to warn indicated: No Asssessment/Mental Status Appearance: Disheveled Attitude: Cooperative and Friendly Behavior: Unremarkable Speech: Normal Affect: Cogruent with mood Mood: Stressed and Other (Tired) Thought process: Goal directed and Poverty of content Hallucinations: No Delusions: No Attention: Unremarkable Perception: Not impaired Orientation: Fully orientated Insight: Poor Judgement: Poor Neurovegetative Symptoms Sleep: Decrease Appetitie: No change Interests: No change Energy: No change Libido: Not applicable Additional Issues: Assaultive/Threatening Behavior: No Medical Concerns: No Client engaged in active self harm w/weapon: No Threatening to run away: No Child reported abuse/neglect: No Voluntarily presenting for services: Yes Domestic violence is a concern: No Extreme Psychosis or extreme behavior is present: No Impression The client is a 29-year-old biological female who resides in [place], [place] with her mom, dad and . The client reports her friend Alberto, and her brother live in the [place] as well. The client presents in a disheveled appearance and is seen wearing a blue t-shirt and green sweatpants laying in her hospital bed. Affect is congruent with mood and speech is in normal range. Client is friendly with this clinician; they report their mood as tired and stressed. Thought process appears to be goal directed and a poverty of content. There are no delusions observed by this clinician. The client denies visual and auditory hallucinations. Cognitive assessment reveals orientation to person, place and time. The client reports coming to the [facility] ED after consuming 6-10 trazadone pills that are either 50mg or 100mg that are prescribed to her pet dog. The client states she got into an argument with her after their puppy had an accident on their bed, and then her mom got involved in the argument. The client states she put the pills in her mouth and did not mean to swallow them. The client reports it as an impulsive act and not in attempts to end her life by suicide. The client denies SI with no plan or intent. The client states she has never felt suicidal in her life but is impulsive at times. The client denies current HI and NSSI with no plan or intent. The client reports sometimes hitting herself and biting her lips when experiencing anxiety. The client scored 6/27 on the PHQ-9 and a 0/6 on the CSSRS. The client reports being supported by her director of casework services Chanda at [facility] and her therapist Bradley Ramires who is based out of [place]. The client denied wanting to complete open enrollment paperwork with this clinician as she already has these supports and does not wish to engage in services with [facility] at this time. The client states she would like to go home and follow up with her therapist on Friday03/28/25 at 2pm. After consultation with supervisor [employer] Darcie and [facility] ED provider Joan it was agreed to have the client seen by a psychiatrist before safety planning home at this time due to acuity. The client is agreeable to stay voluntarily at this time to been seen further by a psychiatrist and reassessment by [facility] emergency services. Plan/Disposition Recommended Disposition: Psych Screening. Plan: The client will remain at [facility] until seen by a psychiatrist and be reassessed by [facility] emergency services due to acuity. An EE will be put in place if client attempts to leave before seen further as she is considered a risk to herself. Reports/communication Outcome discussed with: ED/Personnel
--- NOTE | 2025-03-25 01:42 | NUR.NOTE ---
This RN spoke with Kemal from [facility] at 0135. Updated vital signs and well-being given to [facility] member. Poison Control states they will close the case and no further monitor is required from them.
--- NOTE | 2025-03-25 02:16 | NUR.NOTE ---
Nursing Note: Called to ED to speak with pt and company surrounding request to have service animal be brought into [facility]. Medical clearance is complete and pt has been seen by [facility]. Indicated questions asked and answered. Dog has not yet been present in ED with pt during approx 6 hour stay for evaluation. No report of service dog mentioned until just before this life underwriter asked to respond to ED per ED staff report. Attempt to contact [facility] x several attempts via phone/pager unsuccessful. Plan made with pt and company who agree that pt could be housed in ED proper for close medical observation in order to provide for whatever task the dog would perform until which time admin/risk could assess situation. At this time, task is unclear- pt and company do consent for this and do agree that it is a reasonable plan to have pt in close observation and company to return home in order to care for the dog. aware and amenable to this plan.
--- NOTE | 2025-03-25 03:16 | [facility].SBSAF_ITS ---
Date of service: 03/25/25 Time of Service: 14:25 Sixto-Brown Safety Plan Step 1: Warning signs 1.: I have an increase in anxiety and feel like I am spiraling. 2.: Elevated heart rate and panic attacks. 3.: I become fidgety and restless. Step 2: Internal Coping Strategies Things I can do to take my mind off my problems without contacting another person: 1.: Depressure therapy with service dog. 2.: Jeri art while watching TV. 3.: Deep breath and safe place within head to calm down and decompress. Step 3: People and Social Settings People and social settings that provide distraction: 1. Name: Alberto (friend) 2. Name: Maurilio (parents) 3. Place: My parents Step 4: Assistance People whom I can ask for help during a crisis: 1. Name: Alberto (friend) 2. Name: Maurilio () 3. Name: My parents Step 5: Professionals/Agencies Professionals or agencies I can contact during a crisis: 1. Clinician/Agency Name: Marcela Bonilla 1. 3. Local Emergency Department: [facility] [address] [place] [address] [place] [address] 4. [facility] ([facility]) Mobile Crisis Suicide Prevention Lifeline Phone: [phone] Step 6: Making the Environment Safer Making the environment safer (plan for lethal means safety): 1.: All medications locked up and handed out by mom. 2.: All access to [facility] locked up. Copy to Patient/Family Provided a copy of the Sixto Brown Safety Plan to Patient/Family: Yes Sixto Galvez Copyright Sixto-Brown Safety Planning Intervention The Sixto-Brown Safety Plan is copyrighted by Linda Henson, PhD & Andrés Galvez, PhD (2020). Individual use of the Sixto-Brown Safety Plan form is permitted. Written permission from the authors is required for any changes to this form or use of this form in the electronic medical record. Additional resources are available from www.suicidesafetyplan.com.
== END 2025-03-25 04:22 | disposition home or self-care (01) ==
PROVIDERS: General Practice; Emergency Provider Emergency Medicine; PCP Family Medicine
DX: Z87.440 Personal history of urinary (tract) infections; T43.292A Poisoning by other antidepressants, intentional self-harm, initial encounter; Z86.59 Personal history of other mental and behavioral disorders
CPT/HCPCS: 99285 ×2; 51701; 36415; 00123; 80053; 80307; 82805; 83690; 93005; 96127; 80320; 80329; 81003; 83735; 84703; 85025; 93010